=== PATIENT | male | born 1965 | race Caucasian/White ===

== ENCOUNTER 2020-01-14 10:29 | Emergency (ER) | payer MEDICARE, OTHER, SELFPAY ==
[2020-01-14] VITALS (8 sets, daily range): BP systolic 114–147; BP diastolic 75–88; PULSE 53–71; RESP 14–29; TEMP 36.9; O2SAT 90–99; BMI 35.2
[2020-01-14] MEDS: sodium chloride 0.9% 1,000 ML 999 ML IV (11:27)
--- NOTE | 2020-01-14 11:30 | ECG_ITS ---
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 Measurements Intervals [place] Rate: 52 P: 9 FL: 186 QRS: -24 QRSD: 116 T: -16 QT: 446 QTc: 418 Interpretive Statements SINUS BRADYCARDIA BORDERLINE LEFT AXIS DEVIATION [QRS AXIS < -20] MODERATE INTRAVENTRICULAR CONDUCTION DELAY [110+ ms QRS DURATION] MINIMAL VOLTAGE CRITERIA FOR LVH, CONSIDER NORMAL VARIANT NONSPECIFIC T-WAVE ABNORMALITY Compared to ECG 10/14/2017 05:17:40 T-wave abnormality now present Ventricular premature complex(es) no longer present Electronically Signed On 01-14-2020 21:22:00 CDT by Violeta Lenz M.D. [id number]
[2020-01-14 11:31] LABS: Basophils # 0.1 10^3/uL (0.0-0.1); Basophils % 0.9 %; Hematocrit 37.8 % (42.0-52.0); Hemoglobin 12.3 g/dL (11.7-16.6); Lymphocytes % 67.5 %; Mean Corpuscular HGB Conc 32.5 g/dL (30.0-36.0); Mean Corpuscular Hemoglobin 31.1 pg (28.0-34.0); Mean Corpuscular Volume 95.7 fL (80-94); Mean Platelet Volume 10.4 fL (7.4-10.4); Monocytes # 0.9 10^3/uL (0.2-0.9); Monocytes % 12.3 %; Neutrophils # 1.29 10^3/uL (1.8-7.7); Neutrophils % 17.4 %; Nucleated Red Blood Cells % 0 %; Platelet Count 133 10^3/cmm (130-400); Red Blood Count 3.95 10^6/uL (4.1-5.3); Red Cell Distribution Width 14.6 % (12.1-15.1); White Blood Count 7.4 10^3/uL (4.0-10.0)
[2020-01-14 11:42] LABS: Add Urine Microscopic? NO
--- NOTE | 2020-01-14 11:45 | ED_ITS ---
HPI - General Adult General: Chief complaint: General Medical Stated complaint: SHOCKED BY 220 AMPS Time Seen by Provider: 01/14/20 11:17 History of Present Illness: HPI narrative: Mr. olmedo is a nice 54-year-old male who comes in complaining of generalized weakness and exhaustion. He states that last week he suffered from what he thought was heat exhaustion. He was working outside in the heat for a great deal of time and became overheated. He tried to rest but then the day after he was shocked briefly by a 220 V outlet while working on an air conditioner. He states the shock was brief lasting only 3 to 4 seconds. He tried to rest after this but states that he was just tired and fatigued and could not ever get his energy back. He denies headache, chest pain, shortness of breath, fever, vomiting, abdominal pain or any other complaints. Associated symptoms: Deny chest pain, dyspnea, headache(s), nausea, rash, palpitations, syncope or vomiting Review of Systems Const: Denies: fever(s) Eyes: Denies: change in vision ENMT: Denies: throat pain Card: Denies: chest pain, palpitations, syncope, pre-syncope or dyspnea on ex ertion Resp: Denies: dyspnea, productive cough or non-productive cough GI: Denies: abdominal pain, nausea, vomiting or diarrhea : Denies: flank pain, dysuria, urinary frequency or urinary urgency Musc: Denies: neck pain, back pain or extremity pain Skin/Breast: Denies: rash or pruritus Neuro: Denies: headache(s), numbness in extremities, weakness in extremities or dizziness Atif/Lymph: Denies: easy bruising or easy bleeding All/Imm: Denies: urticaria PFSH ED PFSH: Medical History (Updated 01/14/20 @ 15:01 by Candi Echevarria) Cardiomyopathy Congestive heart failure Degenerative joint disease (DJD) of hip Depression GERD (gastroesophageal reflux disease) Gout Hyperlipidemia Hypertension Hypothyroidism Obesity Presence of combination internal cardiac defibrillator (ICD) and pacemaker Surgical History (Updated 01/14/20 @ 13:10 by Candi Echevarria) H/O hernia repair H/O laparoscopic partial gastrectomy Social History (Updated 01/14/20 @ 13:10 by Candi Echevarria) Smoking and tobacco status: never smoked Alcohol intake: never Physical Exam Const: COMMON NORMALS: no acute distress, patient oriented x3, no limitations, healthy appearing and well nourished GENERAL APPEARANCE: cooperative, well kempt and well developed HENMT: COMMON NORMALS: normocephalic, atraumatic, external ears normal, EAC's normal and Normal external nose present HEAD & SCALP: normal to inspection, normocephalic and atraumatic FACE & SINUS: normal facial exam and face symmetric NOSE: Normal external nose present and Normal nares present EXTERNAL EAR: Yes external ears normal EXTERNAL AUDITORY CANAL: EAC's normal MOUTH: Normal oral and palatal mucosa present, lip normal and tongue normal Eye: COMMON NORMALS: Equal, round and reactive pupils present and conjunctivae normal GENERAL EYE: appearance normal, both eyes and all related structures ALIGNMENT: Yes alignment normal PERIORBITAL: periorbital findings normal EYELID: eyelids normal CONJUNCTIVA: Yes conjunctivae normal SCLERA: sclerae normal PUPIL: Yes Equal, round and reactive pupils present Neck/C-Spine: COMMON NORMALS: full ROM, no lymphadenopathy, supple, no meningeal signs and no JVD GENERAL: Yes normal visual inspection and Yes trachea midline Chest: COMMONS NORMALS: normal inspection of the chest and normal palpation of entire chest wall Resp: COMMON NORMALS: normal respiratory effort, No retractions and No use of accessory muscles EFFORT & INSPECTION: Yes able to speak in complete sentences and Yes symmetric chest movement AUSCULTATION: no crackles, no rales, no rhonchi and no wheezes Cardio: COMMON NORMALS: no JVD, regular rate, regular rhythm, S1 normal heart sound present and S2 normal heart sound present RATE: regular rate RHYTHM: regular rhythm HEART SOUNDS: S1 normal heart sound present, S2 normal heart sound present, no click, no gallops, no murmurs, no rubs and abnormal split S2 GI: COMMON NORMALS: Soft to palpation and No hepatosplenomegaly present PALPATION: Yes Soft to palpation, No Tenderness to palpation present (GI), No Guarding due to palpation present (GI), No Rigid due to palpation, Yes No hepatosplenomegaly present, No Hernia present, No Palpable mass present and No Pulsatile mass present : COMMON NORMALS: Yes no CVA tenderness BLADDER/KIDNEY EXAM: Yes no CVA tenderness Back/Pelvis: COMMON NORMALS: no CVA tenderness, thoracic and lumbar spine normal to inspection, no thoracic nor lumbar tenderness and thoraco-lumbar ROM normal Extremity: COMMON NORMALS: normal to inspection, full ROM, capillary refill normal, no joint enlargement, no clubbing, cyanosis or edema and no calf tenderness Neuro: COMMON NORMALS: patient oriented x3, CN's II-XII intact bilaterally, moves all extremities, no focal motor deficits and no sensory deficits noted MENINGEAL SIGNS: Yes no meningeal signs SPEECH: speech normal Psych: COMMON NORMALS: mental status grossly normal, Normal thought process present, cooperative, normal affect, speech normal and activity/motor behavior normal APPEARANCE: Yes well kempt SPEECH: Yes normal speech THOUGHT PROCESS: Normal thought process present Skin: COMMON NORMALS: no rashes or lesions noted, turgor normal, no jaundice, no petechiae and no mottling GENERAL SKIN EXAM: no rashes or lesions noted and turgor normal Course ED course: 1226 -pacemaker interrogation reviewed with Keshawn from [email or web address]. He states the patient's pacemaker defibrillator checks out fine. It is functioning 100% as it should and there are no signs of defibrillations or any abnormalities in the recent past. Vital Signs: Vital signs: Vital Signs Temperature 98.5 F 01/14/20 10:36 Pulse Rate 62 01/14/20 14:41 Respiratory Rate 14 01/14/20 14:41 Blood Pressure 147/87 01/14/20 14:41 Pulse Oximetry 99 01/14/20 14:41 MDM - General Adult MDM Narrative: Medical decision making narrative: Mr. olmedo is a nice 54-year-old male who comes in after he got overheated last week and also got shocked by 220 V outlet. Patient's pacemaker checks out fine here there is no sign of problem. He is having no chest pain or shortness of breath just generalized weakness. He states this feels like when he had heat exhaustion on ce in the past. I see no sign of acute coronary syndrome, infectious process or acute metabolic or toxic problem. I have offered further observation and care including admission to the hospital but the patient declines. He feels better and would like to go home. He does agree to return should her symptoms change or worsen. Lab Data: Attestation: I reviewed the patient's lab results. Labs: Lab Results 01/14/20 01/14/20 01/14/20 Range/Units 11:22 11:22 11:22 WBC 7.4 (4.0-10.0) 10^3/ uL RBC 3.95 L (4.1-5.3) 10^6/u L Hgb 12.3 (11.7-16.6) g/dL Hct 37.8 L (42.0-52.0) % MCV 95.7 H (80-94) fL MCH 31.1 (28.0-34.0) pg MCHC 32.5 (30.0-36.0) g/dL RDW 14.6 (12.1-15.1) % Plt Count 133 (130-400) 10^3/c mm MPV 10.4 (7.4-10.4) fL Neut % (Auto) 17.4 % Lymph % (Auto) 67.5 % Daggett % (Auto) 12.3 % Eos % (Auto) 0.0 % Baso % (Auto) 0.9 % Neut # (Auto) 1.29 L (1.8-7.7) 10^3/u L Lymph # (Auto) 5.0 H (0.8-4.8) 10^3/u L Daggett # (Auto) 0.9 (0.2-0.9) 10^3/u L Eos # (Auto) 0.0 (0.0-0.8) 10^3/u L Baso # (Auto) 0.1 (0.0-0.1) 10^3/u L Nucleated RBC % (a uto) 0 % Nucleated RBCs # 0.0 /100WBC D-Dimer (0-0.59) ug/mIFE U Specimen Type Sample Site ABG pH (7.35-7.45) ABG pCO2 (35-45) mmHg ABG pO2 (80.0-100.0) mmH g ABG HCO3 (22-26) mmol/L ABG Base Excess (-2.0-2.0) mmol/ L Chris Test Hematocrit (42-52) % O2 Delivery Device FiO2 % Family Services Assistant ID Sodium 141 (136-145) mmol/L Potassium 3.6 (3.5-5.1) mmol/L Chloride 101 (98-107) mmol/L Carbon Dioxide 30 H (22-29) mmol/L Anion Gap 13.6 (5-19) BUN 11 (6-20) mg/dL Creatinine 1.0 (0.7-1.2) mg/dL GFR Calculation 77.6 L (90-130) mL/min Glucose 102 (65-115) mg/dL Calculated Osmolal ity 288 (285-295) mOsm/k g Calcium 8.5 (8.5-10.5) mg/dL Total Bilirubin 0.8 (0.15-1.2) mg/dL AST 37 (0-40) U/L ALT 28 (0-41) U/L Alkaline Phosphata se 79 (40-130) IU/L Creatine Kinase 31 L (39-308) U/L Troponin T Baselin e 8 (0-15) ng/L Troponin T 120 Min [place] (0-15) ng/L Delta Troponin T (0-10) ABS# NT-Pro-B Natriuret Pep (0-125) pg/mL Total Protein 7.1 (6.6-8.7) g/dL Albumin 3.5 (3.5-5.2) g/dL Globulin 3.6 (1.3-4.6) g/dL Urine Color (Yellow) Urine Appearance (CLEAR) Urine pH (5-7) Ur Specific Gravit y (1.005-1.030) Urine Protein (Negative) Urine Glucose (UA) (Normal) Urine Ketones (Negative) Urine Blood (Negative) Urine Nitrate (Negative) Urine Bilirubin (NEGATIVE) Urine Urobilinogen (Negative) mg/dL Ur Leukocyte Grace ase (Negative) Digoxin (0.6-1.2) ng/mL 01/14/20 01/14/20 01/14/20 Range/Units 11:22 11:22 11:30 WBC (4.0-10.0) 10^3/ uL RBC (4.1-5.3) 10^6/u L Hgb (11.7-16.6) g/dL Hct (42.0-52.0) % MCV (80-94) fL MCH (28.0-34.0) pg MCHC (30.0-36.0) g/dL RDW (12.1-15.1) % Plt Count (130-400) 10^3/c mm MPV (7.4-10.4) fL Neut % (Auto) % Lymph % (Auto) % Daggett % (Auto) % Eos % (Auto) % Baso % (Auto) % Neut # (Auto) (1.8-7.7) 10^3/u L Lymph # (Auto) (0.8-4.8) 10^3/u L Daggett # (Auto) (0.2-0.9) 10^3/u L Eos # (Auto) (0.0-0.8) 10^3/u L Baso # (Auto) (0.0-0.1) 10^3/u L Nucleated RBC % (a uto) % Nucleated RBCs # /100WBC D-Dimer 2.90 H (0-0.59) ug/mIFE U Specimen Type Sample Site ABG pH (7.35-7.45) ABG pCO2 (35-45) mmHg ABG pO2 (80.0-100.0) mmH g ABG HCO3 (22-26) mmol/L ABG Base Excess (-2.0-2.0) mmol/ L Chris Test Hematocrit (42-52) % O2 Delivery Device FiO2 % Family Services Assistant ID Sodium (136-145) mmol/L Potassium (3.5-5.1) mmol/L Chloride (98-107) mmol/L Carbon Dioxide (22-29) mmol/L Anion Gap (5-19) BUN (6-20) mg/dL Creatinine (0.7-1.2) mg/dL GFR Calculation (90-130) mL/min Glucose (65-115) mg/dL Calculated Osmolal ity (285-295) mOsm/k g Calcium (8.5-10.5) mg/dL Total Bilirubin (0.15-1.2) mg/dL AST (0-40) U/L ALT (0-41) U/L Alkaline Phosphata se (40-130) IU/L Creatine Kinase (39-308) U/L Troponin T Baselin e (0-15) ng/L Troponin T 120 Min [place] (0-15) ng/L Delta Troponin T (0-10) ABS# NT-Pro-B Natriuret Pep 153 H (0-125) pg/mL Total Protein (6.6-8.7) g/dL Albumin (3.5-5.2) g/dL Globulin (1.3-4.6) g/dL Urine Color Dark yellow (Yellow) Urine Appearance Clear (CLEAR) Urine pH 5 (5-7) Ur Specific Gravit y 1.020 (1.005-1.030) Urine Protein Neg (Negative) Urine Glucose (UA) Norm (Normal) Urine Ketones 1+ H (Negative) Urine Blood Neg (Negative) Urine Nitrate Negative (Negative) Urine Bilirubin 1+ H (NEGATIVE) Urine Urobilinogen 4 H (Negative) mg/dL Ur Leukocyte [place] ase Negative (Negative) Digoxin (0.6-1.2) ng/mL 01/14/20 01/14/20 01/14/20 Range/Units 12:02 13:26 13:26 WBC (4.0-10.0) 10^3/ uL RBC (4.1-5.3) 10^6/u L Hgb (11.7-16.6) g/dL Hct (42.0-52.0) % MCV (80-94) fL MCH (28.0-34.0) pg MCHC (30.0-36.0) g/dL RDW (12.1-15.1) % Plt Count (130-400) 10^3/c mm MPV (7.4-10.4) fL Neut % (Auto) % Lymph % (Auto) % Daggett % (Auto) % Eos % (Auto) % Baso % (Auto) % Neut # (Auto) (1.8-7.7) 10^3/u L Lymph # (Auto) (0.8-4.8) 10^3/u L [place]gett # (Auto) (0.2-0.9) 10^3/u L Eos # (Auto) (0.0-0.8) 10^3/u L Baso # (Auto) (0.0-0.1) 10^3/u L Nucleated RBC % (a uto) % Nucleated RBCs # /100WBC D-Dimer (0-0.59) ug/mIFE U Specimen Type Arterial Sample Site Radial, left ABG pH 7.44 (7.35-7.45) ABG pCO2 45.5 H (35-45) mmHg ABG pO2 95.6 (80.0-100.0) mmH g ABG HCO3 30.7 H (22-26) mmol/L ABG Base Excess 5.7 H (-2.0-2.0) mmol/ L Chris Test Pos Hematocrit 35.5 L (42-52) % O2 Delivery Device Nc FiO2 26.0 % Family Services Assistant ID Cak Sodium (136-145) mmol/L Potassium (3.5-5.1) mmol/L Chloride (98-107) mmol/L Carbon Dioxide (22-29) mmol/L Anion Gap (5-19) BUN (6-20) mg/dL Creatinine (0.7-1.2) mg/dL GFR Calculation (90-130) mL/min Glucose (65-115) mg/dL Calculated Osmolal ity (285-295) mOsm/k g Calcium (8.5-10.5) mg/dL Total Bilirubin (0.15-1.2) mg/dL AST (0-40) U/L ALT (0-41) U/L Alkaline Phosphata se (40-130) IU/L Creatine Kinase (39-308) U/L Troponin T Baselin e (0-15) ng/L Troponin T 120 Min [place] 9.81 (0-15) ng/L Delta Troponin T 1.81 (0-10) ABS# NT-Pro-B Natriuret Pep (0-125) pg/mL Total Protein (6.6-8.7) g/dL Albumin (3.5-5.2) g/dL Globulin (1.3-4.6) g/dL Urine Color (Yellow) Urine Appearance (CLEAR) Urine pH (5-7) Ur Specific Gravit y (1.005-1.030) Urine Protein (Negative) Urine Glucose (UA) (Normal) Urine Ketones (Negative) Urine Blood (Negative) Urine Nitrate (Negative) Urine Bilirubin (NEGATIVE) Urine Urobilinogen (Negative) mg/dL Ur Leukocyte Grace ase (Negative) Digoxin 0.5 L (0.6-1.2) ng/mL Imaging Data^: CT Chest: Radiologist's impression: [address] [address] [address] Scan Report Signed Patient: Bib Olmedo Unit #: [id number] : 1965 Age/Sex: 54 / M ADM Date: 01/14/20 Loc: ER Room/Bed: Attending Dr: Ordering Provider/Ordering MD: Candi Echevarria DO Date of Service: 01/14/20 Procedure(s): CT angio chest PE protcl [id number] Accession Number(s): [id number] Report Number: [id number] WS: [id number] CTA OF THE CHEST WITH PULMONARY EMBOLISM PROTOCOL TECHNIQUE: High-resolution contrast enhanced CTA of the chest with coronal and sagittal reformatted images with pulmonary embolism protocol. MIP images are also reviewed. CLINICAL INFORMATION: shortness of breath, positive d-dimer COMPARISON: CT abdomen pelvis October 13, 2017 DLP: 1741.[address] scans at [facility] use at least one of these dose optimization techniques: automated exposure control; mA and/or kV adjustment per patient size (includes targeted exams where dose is matched to clinical indication); or iterative reconstruction. FINDINGS: Proximal main pulmonary arteries are normal. No evidence of pulmonary embolus. Normal caliber thoracic aorta. Mild chronic emphysematous changes. Bibasilar atelectasis. Calcified granuloma right lower lobe. No mediastinal or hilar lymphadenopathy. Small esophageal hiatal hernia with postoperative changes GE junction. Normal visualized thoracic spine. Partially visualized splenomegaly. Prominent peripancreatic lymph nodes unchanged since CT abdomen pelvis October 13, 2017 Attempted notification Candi Echevarria at 01/14/2020 2:[address]/CT angio chest PE protcl [id number] IMPRESSION: 1. No evidence of pulmonary embolus. 2. Lungs are well aerated. No acute pulmonary infiltrates. Slight bibasilar atelectasis. 3. Small esophageal hiatal hernia with postoperative changes GE junction. 4. Partially visualized splenomegaly measuring at least 15.0 cm [id number] Dictated By: Venkatesh Darby MD Signed By: Venkatesh Darby MD Signed Date/Time: 01/14/20 1440 DD/ 1434 EKG Data^: EKG 1: Attestation: I personally reviewed and interpreted this EKG as follows: EKG interpretation date: 01/14/20 EKG interpretation time: 12:08 Interpretation: Sinus bradycardia at 52 beats a minute, borderline LVH, T waves inverted in 3 and aVF, otherwise no acute abnormalities. Similar to previous. Computer generated interpretation: Chest X-Ray 01/14/20 11:50 IMPRESSION: No acute abnormality. Chest CTA 01/14/20 13:31 IMPRESSION: 1. No evidence of pulmonary embolus. 2. Lungs are well aerated. No acute pulmonary infiltrates. Slight bibasilar atelectasis. 3. Small esophageal hiatal hernia with postoperative changes GE junction. 4. Partially visualized splenomegaly measuring at least 15.0 cm [id number] Discharge Plan Discharge Patient Disposition: Home Clinical Impression: Heat exhaustion Qualifiers: Encounter type: initial encounter Qualified Code(s): T67.5XXA - Heat exhaustion, unspecified, initial encounter Condition: Stable Prescriptions: No Action Multiple Vitamins Tablet 1 tab PO BID RF: 0 Euthyrox 137 mcg tablet 137 mcg PO QAM RF: 0 Coreg 25 mg tablet 25 mg PO BID RF: 0 sucralfate 1 gram tablet 1 g PO TID RF: 0 famotidine 40 mg tablet 40 mg PO BEDTIME RF: 0 simvastatin 10 mg tablet 10 mg PO QPM RF: 0 venlafaxine 150 mg capsule,extended release 24hr 150 mg PO BID RF: 0 digoxin 250 mcg (0.25 mg) tablet See Rx Instructions .ROUTE .COMPLEX RF: 0 Aspir-81 81 mg Tablet,Delayed Release (Dr/Ec) 81 mg PO DAILY RF: 0 pantoprazole 40 mg tablet,delayed release (DR/EC) 40 mg PO DAILY RF: 0 montelukast 10 mg tablet 10 mg PO BEDTIME RF: 0 furosemide 20 mg tablet 20 mg PO DAILY RF: 0 colchicine 0.6 mg tablet 0.6 mg PO DAILY PRN (Reason: unknown) RF: 0 carbidopa-levodopa 25-100 mg tablet 1 tab PO BEDTIME RF: 0 Discharge Orders: Discharge Order (Routine); Ordered 01/14/20 Ordered By: Candi Echevarria Referrals: Suzy Vera MD [Physician] - 1-3 days Discharge Diet: Advance as tolerated Discharge Activity: Resume usual activity Patient Instructions: Heat Exhaustion (ED) Activity Restrictions/Additional Instructions: Please return to the ER immediately for any of the signs or symptoms listed on your discharge instruction sheets, worsening/changing of your symptoms, you are not getting better as quickly as expected, or for ANY other cause or concerns. Discharge Date/Time: 01/14/20 15:08 Coding Level of Care Code ED Taker Off for Chg Fwd Exam Comprehensive
--- NOTE | 2020-01-14 11:50 | XRR_ITS ---
PROCEDURE INFORMATION: Exam: XR Chest, 1 View Exam date and time: 01/14/2020 12:16 PM Age: 54 years old Clinical indication: Prior surgery; Surgery date: 6+ months; Surgery type: Pacemaker; Patient HX: Shocked by 220 amps. C/O weakness and exhaustion; Additional info: Dyspnea TECHNIQUE: Imaging protocol: XR of the chest Views: 1 view. COMPARISON: CR Chest 1 [place] [id number] 10/13/2017 10:07 PM FINDINGS: Tubes, catheters and devices: There is a left subclavian AICD device. Lungs: No pneumonia or pulmonary edema. Pleural space: No pleural effusion or pneumothorax. Heart/Mediastinum: The cardiac silhouette is enlarged. The mediastinal contours are normal. Vasculature: The thoracic aorta is tortuous. Bones/joints: No acute osseous abnormality. XR/XR chest 1V portable [id number] IMPRESSION: No acute abnormality.
[2020-01-14 12:04] LABS: Alanine Aminotransferase 28 U/L (0-41); Albumin Level 3.5 g/dL (3.5-5.2); Alkaline Phosphatase 79 IU/L (40-130); Anion Gap 13.6 (5-19); Aspartate Amino Transferase 37 U/L (0-40); Blood Urea Nitrogen 11 mg/dL (6-20); Calcium 8.5 mg/dL (8.5-10.5); Carbon Dioxide 30 mmol/L (22-29); Chloride 101 mmol/L (98-107); Creatine Phosphokinase 31 U/L (39-308); Globulin 3.6 g/dL (1.3-4.6); Glomerular Filtration Rate 77.6 mL/min (90-130); Glucose 102 mg/dL (65-115); Osmolality Calculated 288 mOsm/kg (285-295); Potassium 3.6 mmol/L (3.5-5.1); Sodium 141 mmol/L (136-145); Total Bilirubin 0.8 mg/dL (0.15-1.2); Total Protein 7.1 g/dL (6.6-8.7)
[2020-01-14 12:06] LABS: Troponin(5th) Baseline 8 ng/L (0-15)
[2020-01-14 12:07] LABS: Slide Review Slide Review Perform
[2020-01-14 12:13] LABS: ABG PCO2 45.5 mmHg (35-45); ABG PH Result 7.44 (7.35-7.45); Arterial Blood Gas Hematocrit 35.5 % (42-52); Base Excess ABG 5.7 mmol/L (-2.0-2.0); Blood Gas Allen Test Pos; Blood Gas Operator Identificat CAK; Blood Gas Sample Site Radial, left; Blood Gas Sample Type Arterial; HCO3 ABG 30.7 mmol/L (22-26); Oxygen Device NC; PO2 ABG 95.6 mmHg (80.0-100.0)
[2020-01-14 12:26] LABS: Bilirubin Urine 1+ (NEGATIVE); Blood Urine Neg (Negative); Glucose Urine UA Norm (Normal); Ketones Urine 1+ (Negative); Leukocyte Esterase Urine Negative (Negative); Nitrate Urine Negative (Negative); Protein Urine Neg (Negative); Urine Appearance Clear (CLEAR); Urine Color Dark Yellow (Yellow); Urobilinogen Urine 4 mg/dL (Negative); pH Urine 5 (5-7)
[2020-01-14 12:27] LABS: NT Pro B Type Natriuretic Pept 153 pg/mL (0-125)
[2020-01-14] MEDS: ipratropium-albuterol 3 mL Neb INHALATION (13:10)
--- NOTE | 2020-01-14 13:31 | CT_ITS ---
WS: [id number] CTA OF THE CHEST WITH PULMONARY EMBOLISM PROTOCOL TECHNIQUE: High-resolution contrast enhanced CTA of the chest with coronal and sagittal reformatted i mages with pulmonary embolism protocol. MIP images are also reviewed. CLINICAL INFORMATION: shortness of breath, positive d-dimer COMPARISON: CT abdomen pelvis October 13, 2017 DLP: 1741.[address] scans at [facility] use at least one of these dose optimization techniques: automat ed exposure control; mA and/or kV adjustment per patient size (includes targeted exams where dose is matched to clinical indication); or iterative reconstruction. FINDINGS: Proximal main pulmonary arteries are normal. No evidence of pulmonary embolus. Normal caliber thoraci c aorta. Mild chronic emphysematous changes. Bibasilar atelectasis. Calcified granuloma right lower lobe. No m ediastinal or hilar lymphadenopathy. Small esophageal hiatal hernia with postoperative changes GE richard ction. Normal visualized thoracic spine. Partially visualized splenomegaly. Prominent peripancreatic lymph nodes unchanged since CT abdomen pelvis October 13, 2017 Attempted notification Candi Echevarria at 01/14/2020 2:[address]/CT angio chest PE protcl [id number] IMPRESSION: 1. No evidence of pulmonary embolus. 2. Lungs are well aerated. No acute pulmonary infiltrates. Slight bibasilar at electasis. 3. Small esophageal hiatal hernia with postoperative changes GE junction. 4. Partially visualized splenomegaly measuring at least 15.0 cm [id number]
[2020-01-14 13:58] LABS: Digoxin 0.5 ng/mL (0.6-1.2)
[2020-01-14 13:59] LABS: Troponin 5 2HR 9.81 ng/L (0-15); Troponin 5 2HR Delta 1.81 ABS# (0-10)
[2020-01-14] MEDS: iohexol 350 mg/mL 100 mL Btl IV ×2 (14:20)
== END 2020-01-14 15:08 | disposition home or self-care (01) ==
PROVIDERS: Physician Assistant; Emergency Provider Emergency Medicine
DX: T67.5XXA Heat exhaustion, unspecified, initial encounter (principal); X30.XXXA Exposure to excessive natural heat, initial encounter; Z79.82 Long term (current) use of aspirin; I11.0 Hypertensive heart disease with heart failure; I50.9 Heart failure, unspecified; E78.5 Hyperlipidemia, unspecified; Z95.0 Presence of cardiac pacemaker
CPT/HCPCS: 12345; 36415; 36600; 71045; 71275; 80053; 80162; 81003; 82550; 82803; 83880; 84484; 85025; 85378; 87040; 93005; 94640; 96360; 99283; 99284; J7030; Q9967

== ENCOUNTER 2024-07-17 11:43 | Outpatient (CLI) | payer MEDICARE, OTHER, SELFPAY ==
--- NOTE | 2024-07-17 12:00 | USCV_ITS ---
Bib Olmedo Age: 58 Gender: M : 1965 Exam Date: 07/17/2024 12:07 Ordering Phys: Ana Selby Technologist: CT Exam Location: [facility] [place]_ Indication: BP: 127 / 81 HR: 47 Rhythm: Sinus Technical Quality: Adequate MEASUREMENTS (Male / Female) Normal Values 2D ECHO LVOT Diameter 2.2 cm LV Ejection Fraction MOD 4C 58.2 % LV Ejection Fraction MOD 2C 47.9 % LV Ejection Fraction 2C AL 49.0 % LA Diameter 4.6 cm RA Systolic Volume 4C AL 48.1 ml RA Systolic Volume 4C MOD 46.1 ml LA Sys Volume AL 90.1 cm cubed LA Sys Volume Index AL 37.0 cm cubed/m squared Aorta at Sinotubular Diameter 2.4 cm IVC Diameter 1.9 cm M-MODE LA Ao Ratio MM 1.9 AV Cusp Separation MM 1.8 cm DOPPLER AV Peak Velocity 164.0 cm/s LVOT Peak Velocity 76.0 cm/s AV Area Cont Eq vti 1.7 cm squared AV Area Cont Eq pk 1.8 cm squared MV Peak Velocity 87.0 cm/s MV Area PHT 2.8 cm squared Mitral E to A Ratio 0.8 TR Peak Velocity 254.5 cm/s TR Peak Gradient 25.9 mmHg TR Mean Velocity 188.0 cm/s TR Mean Gradient 15.9 mmHg TR Velocity Time Integral 69.0 cm TV Peak E Velocity 59.0 cm/s PV Peak Velocity 114.5 cm/s FINDINGS Left Ventricle LV systolic function is mildly reduced with EF of 45-50%. Mild global hypokinesis. Grade 1 diastolic dysfunction. Right Ventricle Normal in size and function. Pacemaker lead is seen Right Atrium Normal in size. Left Atrium Dilated Mitral Valve Structurally normal mitral valve. Mild to moderate mitral regurgitation. Aortic Valve Structurally normal aortic valve. No significant stenosis or regurgitation Tricuspid Valve Mild tricuspid regurgitation. Pulmonary artery systolic pressure is normal. Pulmonic Valve Not well-visualized. Pericardium Normal Aorta Normal in size IVC Appears to be normal CONCLUSIONS LV systolic function is mildly reduced with EF of 45-50%. Grade 1 diastolic dysfunction. Left atrial dilation. Mild to moderate mitral regurgitation Mild tricuspid regurgitation Andrea Morris MD (Electronically Signed) Final Date: 22 July 2024 13:57 S
== END 2024-07-17 11:44 | disposition home or self-care (01) ==
LOC: RAD 11:48
PROVIDERS: PCP Registered Nurse; Visit Provider Registered Nurse
DX: I50.42 Chronic combined systolic (congestive) and diastolic (congestive) heart failure (principal); I49.5 Sick sinus syndrome; I42.0 Dilated cardiomyopathy; R93.1 Abnormal findings on diagnostic imaging of heart and coronary circulation; I34.0 Nonrheumatic mitral (valve) insufficiency; I07.1 Rheumatic tricuspid insufficiency
CPT/HCPCS: 93306

== ENCOUNTER 2025-05-27 18:07 | Emergency (ER) | payer MEDICARE, OTHER, SELFPAY ==
[2025-05-27 18:21] VITALS: BP 157/92; PULSE 57; TEMP 36.6; O2SAT 99
--- NOTE | 2025-05-27 19:12 | W.ED.MALEGU ---
HPI - Male Genitourinary General: Chief complaint: Urogenital-Male Stated complaint: Lower Rt Hernia Blown Out Time Seen by Provider: 05/27/25 19:11 History of Present Illness: 59-year-old male presents emergency room complaining of groin pain. He says that he picked up something heavy felt a bulging in his right groin region. It initially happened 3 days ago he is able to get it to reduce he seemed to do pretty well for the next couple of days and today when out and he cannot get it reduced. He previously had bilateral inguinal hernia surgery several decades ago. No dysuria urgency or frequency no fevers or chills no vomiting Associated symptoms: Deny dysuria Related Data Home Medications ?Medication ?Instructions ?Recorded ?Confirmed aspirin 81 mg tablet,delayed 81 mg PO DAILY 01/14/20 01/14/20 release (Aspir-) carbidopa 25 mg-levodopa 100 mg 1 tab PO BEDTIME 01/14/20 01/14/20 tablet carvedilol 25 mg tablet (Coreg) 25 mg PO BID 01/14/20 01/14/20 colchicine 0.6 mg tablet 0.6 mg PO DAILY PRN unknown 01/14/20 01/14/20 digoxin 250 mcg (0.25 mg) tablet See Rx Instructions .Route .COMPLEX 01/14/20 01/14/20 famotidine 40 mg tablet 40 mg PO BEDTIME 01/14/20 01/14/20 furosemide 20 mg tablet 20 mg PO DAILY 01/14/20 01/14/20 levothyroxine 137 mcg tablet 137 mcg PO QAM 01/14/20 01/14/20 (Euthyrox) montelukast 10 mg tablet 10 mg PO BEDTIME 01/14/20 01/14/20 multivitamin (Multiple Vitamins 1 tab PO BID 01/14/20 01/14/20 tablet) pantoprazole 40 mg tablet,delayed 40 mg PO DAILY 01/14/20 01/14/20 release simvastatin 10 mg tablet 10 mg PO QPM 01/14/20 01/14/20 sucralfate 1 gram tablet 1 g PO TID 01/14/20 01/14/20 venlafaxine 150 mg 150 mg PO BID 01/14/20 01/14/20 capsule,extended release 24 hr Allergies Allergy/AdvReac Type Severity Reaction Status Date / Time No Known Allergies Allergy Verified 05/27/25 18:26 Review of Systems Const: Denies: fever(s) or chills Card: Denies: chest pain Resp: Denies: dyspnea GI: Denies: abdominal pain : Denies: dysuria, urinary frequency or urinary urgency Musc: Denies: neck pain or back pain Skin/Breast: Denies: rash PFSH ED PFSH: Medical History Hypothyroidism GERD (gastroesophageal reflux disease) Degenerative joint disease (DJD) of hip Depression Gout Congestive heart failure Obesity Hyperlipidemia Hypertension Presence of combination internal cardiac defibrillator (ICD) and pacemaker Cardiomyopathy Surgical History H/O hernia repair H/O laparoscopic partial gastrectomy Social History Smoking and tobacco/nicotine status: never used tobacco/nicotine Alcohol intake: never Substance/Drug Use: never Physical Exam Const: COMMON NORMALS: no acute distress GENERAL APPEARANCE: cooperative and comfortable ORIENTATION/CONSCIOUSNESS: Yes awake, Yes oriented to person, Yes oriented to place and Yes oriented to time HENMT: COMMON NORMALS: normocephalic, atraumatic and hearing grossly normal bilaterally HEAD & SCALP: normocephalic and atraumatic Resp: COMMON NORMALS: normal respiratory effort, No retractions, No use of accessory muscles and clear to auscultation bilaterally AUSCULTATION: clear to auscultation bilaterally Cardio: COMMON NORMALS: regular rate, regular rhythm and No murmurs present (Cardio) RATE: regular rate RHYTHM: regular rhythm GI: COMMON NORMALS: Soft to palpation and No hepatosplenomegaly present AUSCULTATION: Yes normoactive bowel sounds PALPATION: Yes Soft to palpation, No Tenderness to palpation present (GI), No Guarding due to palpation present (GI) and Yes No hepatosplenomegaly present Extremity: COMMON NORMALS: normal to inspection, capillary refill normal, no clubbing, cyanosis or edema, no calf tenderness and no pedal edema Neuro: SENSORIUM/ORIENTATION: Yes oriented to person, Yes oriented to place and Yes oriented to time Skin: COMMON NORMALS: no rashes or lesions noted GENERAL SKIN EXAM: no rashes or lesions noted Course Vital Signs: Vital signs: Vital Signs Temperature 97.8 F 05/27/25 18:21 Pulse Rate 75 05/27/25 20:46 Respiratory Rate 16 05/27/25 20:15 Blood Pressure 132/75 05/27/25 20:46 Pulse Oximetry 93 05/27/25 20:46 Oxygen Delivery Me thod Room Air 05/27/25 20:00 MDM - Male Medical Decision Making Medical decision making Social determinants: None I reviewed the patient's medical record. I reviewed the patient's current home meds. Alternate historians: None Differential diagnosis: Right inguinal hernia strangulation versus incarceration bowel obstruction Lab Review: None Imaging: CT abdomen pelvis done after reduction of hernia shows good reduction there is some inflammation to Of the terminal ileum. Reviewed with the radiologist given the history of recent reduction he felt this is compatible with what they are seen. Additionally he confirmed there is no sign of obstruction or perforation Assessment of risk Level of risk: Moderate Hospitalization considerations: Consideration for hospitalization pending results of CT Reexamination: Improved no recurrence of inguinal hernia Assessment and plan: Hernia removed reduced by direct manipulation. Patient did have improvement although he was somewhat uncomfortable for a time after pain medications given did help it. I discussed with radiologist to confirm there is no sign of perforation. Patient discharged home given strict instructions regarding heavy lifting and exertion. Will refer him to surgery clinic. Return if has recurrence of herniation Lab Data Radiology Impressions Abdomen/Pelvis CT 05/27/25 19:21 IMPRESSION: 1. Right inguinal small hernia containing omentum with some edema of the omentum without definite bowel involved, negative for bowel dilation to indicate obstruction, please correlate for reduction. 2. Terminal ileum wall thickening with surrounding edema, series 4, image 75, please correlate for an enteritis such as inflammatory bowel disease. 3. Prominent fluid in the small bowel without dilation may reflect an enteritis. 4. Diverticulosis without diverticulitis. 5. Left kidney cyst, negative for follow-up advised. 6. Coronary artery atherosclerotic calcifications. 7. Pacemaker. 8. Cholecystectomy. 9. Gastric surgical sutures. ADDENDUM: 05/27/252016 Additional history has become available, reduction of a right-sided inguinal hernia that occurred prior to the CT scan. In light of this, the terminal ileum wall findings are likely related to reduction of a previously present hernia. Findings reviewed with Dr HAMMOND on the telephone. All radiology interpretation(s) finalized by discharge Discharge Plan Discharge Patient Disposition: Home Clinical Impression: Right inguinal hernia Condition: Stable Prescriptions: No Action Multiple Vitamins Tablet 1 tab PO BID Euthyrox 137 mcg tablet 137 mcg PO QAM Coreg 25 mg tablet 25 mg PO BID sucralfate 1 gram tablet 1 g PO TID Rx Instructions: pts states pt takes 1 tab po bid famotidine 40 mg tablet 40 mg PO BEDTIME simvastatin 10 mg tablet 10 mg PO QPM venlafaxine 150 mg capsule,extended release 24hr 150 mg PO BID Rx Instructions: pts state the pt only takes once a day digoxin 250 mcg (0.25 mg) tablet See Rx Instructions .ROUTE .COMPLEX Rx Instructions: one-half tab po daily Aspir-81 81 mg Tablet,Delayed Release (Dr/Ec) 81 mg PO DAILY pantoprazole 40 mg tablet,delayed release (DR/EC) 40 mg PO DAILY montelukast 10 mg tablet 10 mg PO BEDTIME furosemide 20 mg tablet 20 mg PO DAILY Rx Instructions: pts states the pt hasnt taken for a couple days colchicine 0.6 mg tablet 0.6 mg PO DAILY PRN (Reason: unknown) carbidopa-levodopa 25-100 mg tablet 1 tab PO BEDTIME Discharge Orders: Discharge ED (Routine); Ordered 05/27/25 Ordered By: José Miguel Hammond Referrals: Ana Selby [Primary Care Provider, Family Practice] Patient Instructions: Opioid Safety, Pain Management, Patient Portal & Tania Instructions Activity Restrictions/Additional Instructions: Thank you for choosing [facility] for your healthcare needs today. It is very important that you follow up as instructed or that you return to the Emergency Department should you have concerns or if your condition changes or worsens in any way. Emergency department visits are focused on emergent conditions, in some cases you may require further evaluation on an outpatient basis. You were seen in the emergency room with a right inguinal hernia. We were able to reduce it. CT that was done after the reduction showed findings that would be expected after presenting with an incarcerated hernia. There was no sign of perforation of the bowel. At this point you do not need to have this emergently repaired but will likely need a surgical repair of this hernia in the future. You should avoid any heavy lifting. Do not lift anything greater than 10 pounds (a gallon of milk is approximately 10 pounds.) classification case manager will make arrangements for you to follow-up with general surgery. If the hernia protrudes and will not go down return to the emergency room. (Please note that included in your discharge packet is information concerning opioid safety and pain management. This information is given to all patients were discharged from the ER regardless of their discharge diagnosis or the medicines they usually take or are prescribed.) Print Language: Spanish Coding Level of Care Code ED School Examiner for Machelle Petersen
[2025-05-27 19:15] VITALS: BP 150/88; PULSE 68; O2SAT 97
--- NOTE | 2025-05-27 19:21 | CTR_ITS ---
PROCEDURE INFORMATION: Exam: CT Abdomen And Pelvis Without Contrast Exam date and time: 05/27/2025 7:49 PM Age: 59 years old Clinical indication: Other: Inguinal hernia; Prior surgery; Surgery date: 6+ months; Surgery type: Hernia pacer; Additional info: Incarcerated inguinal hernia TECHNIQUE: Imaging protocol: Computed tomography of the abdomen and pelvis without contrast. Radiation optimization: All CT scans at this facility use at least one of these dose optimization techniques: automated exposure control; mA and/or kV adjustment per patient size (includes targeted exams where dose is matched to clinical indication); or iterative reconstruction. COMPARISON: CT angio chest PE protcl [id number] 01/14/2020 2:04 PM RADIATION DOSE METRICS: Total DLP (mGy-cm): 880.33 FINDINGS: Tubes, catheters and devices: Pacemaker. Coronary arteries: Coronary artery atherosclerotic calcifications. Liver: Normal. No mass. Gallbladder and biliary ducts: Cholecystectomy. Pancreas: Normal. No ductal dilation. Spleen: Normal. No splenomegaly. Adrenal glands: Normal. No mass. Kidneys and ureters: Left kidney cyst, negative for follow-up advised. Stomach and bowel: Terminal ileum wall thickening with surrounding edema, series 4, image 75, please correlate for an enteritis such as inflammatory bowel disease. Prominent fluid in the small bowel without dilation may reflect an enteritis. Diverticulosis without diverticulitis. Gastric surgical sutures. Appendix: No evidence of appendicitis. Intraperitoneal space: Right inguinal small hernia containing omentum with some edema of the omentum without definite bowel involved, negative for bowel dilation to indicate obstruction, please correlate for reduction. Vasculature: Unremarkable. No abdominal aortic aneurysm. Lymph nodes: Unremarkable. No enlarged lymph nodes. Urinary bladder: Unremarkable as visualized. Reproductive: Unremarkable as visualized. Bones/joints: Unremarkable. No acute fracture. Soft tissues: Unremarkable. CT/CT abdomen pelvis wo con [id number] IMPRESSION: 1. Right inguinal small hernia containing omentum with some edema of the omentum without definite bowel involved, negative for bowel dilation to indicate obstruction, please correlate for reduction. 2. Terminal ileum wall thickening with surrounding edema, series 4, image 75, please correlate for an enteritis such as inflammatory bowel disease. 3. Prominent fluid in the small bowel without dilation may reflect an enteritis. 4. Diverticulosis without diverticulitis. 5. Left kidney cyst, negative for follow-up advised. 6. Coronary artery atherosclerotic calcifications. 7. Pacemaker. 8. Cholecystectomy. 9. Gastric surgical sutures.
[2025-05-27 20:00] VITALS: BP 138/79; PULSE 71; O2SAT 93
[2025-05-27 20:15] VITALS: RESP 16; O2SAT 93
[2025-05-27] MEDS: ondansetron 2 mg/ML SDV 2 mL 4 MG IVP (20:15)
[2025-05-27] MEDS: morphine 4 mg/mL SDV 1 mL IVP (20:15)
[2025-05-27 20:46] VITALS: BP 132/75; PULSE 75; O2SAT 93
--- OUTSIDE RECORDS SUMMARY | 2025-05-27 21:37 | XMS_ITS | Encounter Summary ---
Author Organization [facility] Address [address] [place] [address] Care Team Providers Care Family Health Nurse Practitioner Name Role Phone Curtis Mariee MD Primary Care Provider [phone] Reason for Visit * Reason Onset Date Comments Hernia 05/27/2025 Encounter Details Date Type Department Care Team (Late st Contact Info) Description 05/27/2025 Telephone [facility] [address] [phone] Ana Selby, [facility] [address] [phone] Hernia Social History Tobacco Use Types Packs/Day Years Used Date Smoking Tobacco: Every Day Cigarettes Smokeless Tobacco: Never Alcohol Use Standard Drinks/Week Comments No 0 (1 standard drink = 0.6 oz pur e alcohol) Sex and Gender Information Value Date Recorded Sex Assigned at Not on file Legal Sex Male 1:20 PM CLEARANCE DIVER Gender Identity Not on file Sexual Orientation Not on file documented as of this encounter Miscellaneous Notes * Telephone Encounter - Gloria Timmons RN - 05/27/2025 7:56 AM CLEARANCE DIVER 05/27/2025 7:56 AM Returned call and spoke with caregiver. Discussed that is recommended to be evaluated at the ER. states that she wants this discussed with Ana, she doesn't want her emails being read and her not knowing what is going on. Nurse advised that message will be sent to provider per request. Gloria RN RANCE DIVER documented in this encounter Plan of Treatment Upcoming Encounters Date Type Department Care Team (Late st Contact Info) Description 06/10/2025 8:00 AM CLEARANCE DIVER Procedure visit [facility] [address] [place] [phone] Shadi Rodriguez MD [address] [place] [phone] 07/22/2025 10:20 AM CLEARANCE DIVER Office Visit [facility] [place] [facility] [address] [phone] Ana Selby, [facility] [address] [phone] 08/27/2025 1:20 PM CDT Office Visit [facility] [address] [facility] [address] [place] [phone] Anaya Perrin, [facility] [address] [place] [phone] 12/16/2025 3:00 PM CDT Office Visit [facility] Gen Spec Surg [place] [address] [phone] Abner Bruce, [facility] [address] [phone] 12/16/2025 3:45 PM CDT Video Visit [facility] [address] [phone] Jesu Chung, DOUBLE CORNER CUTTER [address] [place] [address] documented as of this encounter Goals Goal Patient Goal Type Associated Problems Recent Progress Patient-Stated? Author Heart Failure Goal Care Plan Heart Failure Problem No Gloria Timmons, commissary assistant Failure Goal Care Plan Heart Failure Problem No Wayne, Manish Heart Failure Goal Care Plan Heart Failure Problem No Wayne, Manish Heart Failure Goal Care Plan Heart Failure Problem No Wayne, Manish Heart Failure Goal Care Plan Heart Failure Problem No Wayne, Manish Heart Failure Goal Care Plan Heart Failure Problem No Wayne, Mnaish Heart Failure Goal Care Plan Heart Failure Problem No Wayne, Manish Heart Failure Goal Care Plan Heart Failure Problem No Wayne, Manish Heart Failure Goal Care Plan Heart Failure Problem No Wayne, Manish Heart Failure Goal Care Plan Heart Failure Problem No Wayne, Manish Heart Failure Goal Care Plan Heart Failure Problem No Wayne, Manish Heart Failure Goal Care Plan Heart Failure Problem No Gloria Timmons RN Heart Failure Goal Care Plan Heart Failure Problem No Gloria Timmons, TOM documented as of this encounter Visit Diagnoses Not on filedocumented in this encounter Additional Health Concerns Active Problems Noted Date Diagnosed Date Heart Failure Problem 05/15/2024 Heart Failure Problem 07/09/2024 Heart Failure Problem 07/09/2024 Heart Failure Problem 07/09/2024 Heart Failure Problem 07/09/2024 Heart Failure Problem 07/09/2024 Heart Failure Problem 07/09/2024 Heart Failure Problem 07/09/2024 Heart Failure Problem 07/09/2024 Heart Failure Problem 07/09/2024 Heart Failure Problem 07/09/2024 Heart Failure Problem 07/11/2024 Heart Failure Problem 07/11/2024 documented as of this encounter Care Teams Family Health Nurse Practitioner Relationship Specialty Start Date End Date Curtis Mariee MD [address] [facility] [address] [place] [id number] PCP - General Family Practice 07/08/23 documented as of this encounter
--- OUTSIDE RECORDS SUMMARY | 2025-05-27 21:37 | XMS_ITS | Encounter Summary ---
Author Organization [facility] Address [address] [place] [address] Care Team Providers Care Dining Room Attendant Cafeteria Name Role Phone MarcosAngellaRosita Guy TILLMAN Primary Care Provider [phone] Reason for Referral * Radiology Services (Routine) - Closed Specialty Diagnoses / Procedures Referred By Jada t Referred To Contact Radiology Diagnoses Gastroesophageal reflux disease without esophagitis History of sleeve gastrectomy Procedures XR UPR GI XR UPR GI AIR CONTRAST Rowena Harman FNP [facility] Imaging Services [address] [place] [phone] Phone: tel: fax: Referral ID Status Reason Start Date Expiration Date V isits Requested Visits Authorized [id number] Closed [facility] TO SCHEDULE (SGF) 08/14/2019 09/13/2020 1 1 LER PICKUP Encounter Details Date Type Department Care Team (Latest Contact Info) Description 08/21/2019 Ancillary Orders [facility] Gen [facility] [place] [address] [facility] [address] [place] [address] Rowena Harman FNP NO ADDRESS ON FILE Gastroesophageal reflux disease without esophagitis; History of sleeve gastrectomy Social History Tobacco Use Types Packs/Day Years Used Date Smoking Tobacco: Every Day Cigarettes Smokeless Tobacco: Never Alcohol Use Standard Drinks/Week Comments No 0 (1 standard drink = 0.6 oz pur e alcohol) Sex and Gender Information Value Date Recorded Sex Assigned at Not on file Legal Sex Male 3:06 PM CDT Gender Identity Not on file Sexual Orientation Not on file documented as of this encounter Plan of Treatment Not on file documented as of this encounter Results * XR UPR GI (08/21/2019 9:43 AM SAMPLER PICKUP) Anatomical Region Laterality Modality Abdomen Computed Radiogr aphy 08/21/2019 9:45 AM SAMPLER PICKUP Narrative 08/21/2019 12:00 PM SAMPLER PICKUP Exam: XR UPR GI Date/Time of Exam: 08/21/2019 9:43 AM Reason For Exam: See Diagnosis. Diagnosis: Gastroesophageal reflux disease without esophagitis; History of sleeve gastrectomy. Preliminary findings dictated by JANAE Hall RPA. Direct supervision and final interpretation by Dr. Bourgeois. Welding Machine Operator Helper Gas views of the abdomen show stool throughout the nondistended colon. Surgical clips over the left upper abdomen. Esophagus is somewhat distended without stricture, mass, or ulceration. Small sliding-type hiatal hernia. The sleeve gastrectomy is minimally restrictive without stricture or obstruction identified. No delayed gastric emptying. Duodenal bulb and sweep show no gross abnormality. Two diverticula from the second and third portions of the duodenum. IMPRESSION 1. Small sliding-type hiatal hernia. 2. Minimally restrictive sleeve gastrectomy. 3. Duodenal diverticula. Procedure Note Zachery Bourgeois MD - 08/21/2019 Exam: XR UPR GI Date/Time of Exam: 08/21/2019 9:43 AM Reason For Exam: See Diagnosis. Diagnosis: Gastroesophageal reflux disease without esophagitis; History of sleeve gastrectomy. Preliminary findings dictated by JANAE Hall RPA. Direct supervision and final interpretation by Dr. Bourgeois. Welding Machine Operator Helper Gas views of the abdomen show stool throughout the nondistended colon. Surgical clips over the left upper abdomen. Esophagus is somewhat distended without stricture, mass, or ulceration. Small sliding-type hiatal hernia. The sleeve gastrectomy is minimally restrictive without stricture or obstruction identified. No delayed gastric emptying. Duodenal bulb and sweep show no gross abnormality. Two diverticula from the second and third portions of the duodenum. IMPRESSION 1. Small sliding-type hiatal hernia. 2. Minimally restrictive sleeve gastrectomy. 3. Duodenal diverticula. Rowena L Harman MANAGER DISASTER RECOVERY DIAGNOSTIC IMAGING ORDERABLES Final Result documented in this encounter Visit Diagnoses Diagnosis Gastroesophageal reflux disease without esophagitis Esophageal reflux History of sleeve gastrectomy Gastroesophageal reflux disease without esophagitis Esophageal reflux History of sleeve gastrectomy documented in this encounter Care Teams Dining Room Attendant Cafeteria Relationship Specialty Start Date End Date Rosita Rodríguez DO [address] [place] [id number] PCP - General Family Practice 07/26/17 documented as of this encounter
--- OUTSIDE RECORDS SUMMARY | 2025-05-27 21:37 | XMS_ITS | Encounter Summary ---
Author Organization [facility] Address [address] [place] [address] Care Team Providers Care Gas Plant Worker Name Role Phone Curtis Mariee MD Primary Care Provider +1 [phone] Encounter Details Date Type Department Care Team (Late st Contact Info) Description 04/17/2025 Results Follow-Up [facility] Family Medicine [place] [address] [address] Ana Selby, [facility] [address] [address] CBC WITH DIFFERENTIAL, HEMOGLOBIN A1C, LIPID PANEL, Additional followed-up results: 3 Social History Tobacco Use Types Packs/Day Years Used Date Smoking Tobacco: Every Day Cigarettes Smokeless Tobacco: Never Alcohol Use Standard Drinks/Week Comments No 0 (1 standard drink = 0.6 oz pur e alcohol) Sex and Gender Information Value Date Recorded Sex Assigned at Not on file Legal Sex Male 1:20 PM FRONT OF HOUSE MANAGER Gender Identity Not on file Sexual Orientation Not on file documented as of this encounter Plan of Treatment Upcoming Encounters Date Type Department Care Team (Late st Contact Info) Description 06/10/2025 8:00 AM FRONT OF HOUSE MANAGER Procedure visit [facility] [address] [facility] [address] [place] [address] Shadi Rodriguez MD [address] [place] [phone] 07/22/2025 10:20 AM FRONT OF HOUSE MANAGER Office Visit [facility] Family Medicine [place] [address] [place] [address] Ana Selby, [facility] [address] [address] 08/27/2025 1:20 PM CDT Office Visit [facility] [address] [place] [address] Anaya Perrin, [facility] [address] [place] [address] 12/16/2025 3:00 PM CDT Office Visit [facility] Gen Spec Surg [place] [address] [place] [address] Abner Bruce, [facility] [address] [place] [address] 12/16/2025 3:45 PM CDT Video Visit [facility] Sleep Center [address] [address] Jesu Chung NP [address] [address] documented as of this encounter Goals Goal Patient Goal Type Associated Problems Recent Progress Patient-Stated? Author Heart Failure Goal Care Plan Heart Failure Problem No Gloria Timmons, scrap burner Failure Goal Care Plan Heart Failure Problem No Manish Black Heart Failure Goal Care Plan Heart Failure Problem No Manish Black Heart Failure Goal Care Plan Heart Failure [...] Plan Heart Failure Problem No Gloria Timmons, scrap burner Failure Goal Care Plan Heart Failure Problem No Gloria Timmons RN documented as of this encounter Visit Diagnoses [...] documented as of this encounter Care Teams Gas Plant Worker Relationship Specialty Start Date End Date Curtis Mariee MD [address] [phone] PCP - General Family Practice 07/08/23 documented as of this encounter
--- OUTSIDE RECORDS SUMMARY | 2025-05-27 21:37 | XMS_ITS | Encounter Summary ---
Author Organization [facility] Address [address] [place] [address] Care Team Providers Care Heel Seat Pounder Name Role Phone Curtis Mariee MD Primary Care Provider [phone] [phone] Reason for Visit * Reason Onset Date Comments rescheduled appointment 05/23/2025 Patient Communication Encounter Details Date Type Department Care Team (Late st Contact Info) Description 05/23/2025 Telephone [facility] Family Medicine [place] [address] [address] Ana Selby, [facility] [address] [address] rescheduled appointment; Patient Communication Social History Tobacco Use Types Packs/Day Years Used Date Smoking Tobacco: Every Day Cigarettes Smokeless Tobacco: Never Alcohol Use Standard Drinks/Week Comments No 0 (1 standard drink = 0.6 oz pur e alcohol) Sex and Gender Information Value Date Recorded Sex Assigned at Not on file Legal Sex Male 1:20 PM CONVEYOR LINE BAKERY WORKER Gender Identity Not on file Sexual Orientation Not on file documented as of this encounter Miscellaneous Notes * Telephone Encounter - Siobhan Doty - 05/23/2025 3:38 PM CST Copied from [facility] #[id number]. Topic: CPA Information Request >> May 23, 2025 3:37 PM Siobhan Castillo wrote: Caller is returning phone call from clinic. Caller Name: Bib Olmedo Patient/Caregiver Callback Number: Telephone Information: Clinic Left Note In Chart - informed and is okay with new scheduling date. Is there a note from the clinic requesting the caller be transferred when they call back? No Are the credentials of the caregiver who called the patient tour driver? No Call Notes: Communicated information that is documented in the note. Caller does not want a call back from clinic. EYOR LINE BAKERY WORKER * Telephone Encounter - May Anderson - 05/23/2025 3:32 PM CST 05/23/2025 3:32 PM No answer. Left voice mail/message to return our call. If patient/caregiver calls back, contact center please advise patient that his 07/17/25 appointment has been RESCHEDULED to 07/22/2025 @ 10:20 am If this appointment does not work for the patient please rescheduled to a day and time that is convenient for patient. Will send My MXP4 Mailed letter to address on file. May EYOR LINE BAKERY WORKER documented in this encounter Plan of Treatment Upcoming Encounters Date Type Department Care Team (Late st Contact Info) Description 06/10/2025 8:00 AM CONVEYOR LINE BAKERY WORKER Procedure visit [facility] [address] [place] [address] Shadi Rodriguez MD [address] [place] [phone] 07/22/2025 10:20 AM CONVEYOR LINE BAKERY WORKER Office Visit [facility] [address] [address] Ana Selby FNP [address] [phone] 08/27/2025 1:20 PM CDT Office Visit [facility] [address] [place] [address] Anaya Perrin, [facility] [address] [place] [address] 12/16/2025 3:00 PM CDT Office Visit [facility] Gen Spec Surg [place] [address] [place] [address] Abner Bruce, [facility] [address] [place] [address] 12/16/2025 3:45 PM CDT Video Visit [facility] Sleep Center [address] [place] [address] Jesu Chung, FIELD ASSOCIATE [address] [facility] [address] [place] [address] documented as of this encounter [...] Goal Care Plan Heart Failure Problem No Timmons, Gloria Layne, kidney trimmer Failure Goal Care Plan Heart Failure Problem [...] documented as of this encounter Care Teams Heel Seat Pounder Relationship Specialty Start Date End Date Curtis Mariee MD [address] [phone] PCP - General Family Practice 07/08/23 documented as of this encounter
--- OUTSIDE RECORDS SUMMARY | 2025-05-27 21:37 | XMS_ITS | Clinical Summary ---
Author Organization [facility] Address [address] [place] [address] Phone Care Team Providers Care Educational Consultant Name Role Phone Rosita Rodríguez Primary Care Provider Allergies No known active allergies Medications aspirin (ECOTRIN EC) 81 mg Tablet, Delayed Release (E.C.) Take 81 mg by mouth daily. Active MULTIVIT-MINERALS/ FA/LYCOPENE (ONE DAILY FOR MEN ORAL) Take 1 Tablet by mouth daily. Active Syringe with Needle, Disp, (BD LUER-LUIS SYRINGE) 3 mL 22 x 1 1/2 SyringeIndications :Other specified intestinal malabsorption,S/P laparoscopic sleeve gastrectomy As directed. 3 Syringe 3 8 Active febuxostat (ULORIC) 40 mg TabletIndications: Chronic gout with tophus, unspecified cause, unspecified site Take 1 Tablet (40 mg) by mouth daily. 30 Tablet 4 8 Active diclofenac sodium (VOLTAREN) 1 % gel Apply 1 Gram to affected area 4 times daily. Active carvediloL (COREG) 25 mg tablet Take 1 tablet by mouth twice daily with food 180 Tablet 3 0 Active furosemide (LASIX) 20 mg tablet Take 1 tablet by mouth once daily 45 Tablet 3 0 Active pantoprazole (PROTONIX) 40 mg Tablet, Delayed Release (E.C.) TAKE 1 TABLET BY MOUTH ONCE DAILY 90 Tablet 3 0 Active bi-level machineIndications :JESS (obstructive sleep apnea) BiLevel 13 CWPwith heated humidifier, Cpap/Bipap supplies: Full face mask and headgear A7030/A7035 1/6mo, mask only A7030 1/3mo, cushions A7031 1/mo, heated tubing A4604, 1/3mo, water chamber A7046 1/6mo, filter disposable filters A7038 2/mo, reusable filters A7039 1/6mo. Chin Strap A7036 1/6 mo Length of need; 99 mo DX : G47.33 1 Each 0 Active indomethacin (INDOCIN) 25 mg capsuleIndications :Chronic gout with tophus, unspecified cause, unspecified site Take 1 Capsule (25 mg) by mouth 3 times daily. 90 Capsule 3 0 Active famotidine (PEPCID) 40 mg tabletIndications: S/P laparoscopic sleeve gastrectomy,Gastro esophageal reflux disease without esophagitis TAKE 1 TABLET BY MOUTH ONCE DAILY AT NIGHT 90 Tablet 3 0 Active digoxin (LANOXIN) 250 mcg (0.25 mg) tabletIndications: Dilated cardiomyopathy (CMS/HCC) Take 1/2 (one-half) tablet by mouth once daily 45 Tablet 4 0 Active LEVOTHYROXINE 137 mcg tablet TAKE 1 TABLET BY MOUTH ONCE DAILY IN THE MORNING 90 Tablet 1 Active venlafaxine (EFFEXOR XR) 150 mg Extended Release 24 hour capsule Take 1 capsule by mouth twice daily 180 Capsule 1 Active fluticasone propionate (FLONASE) 50 mcg/spray Cameron, Suspension nasal inhalerIndications :Subacute pansinusitis Administer 2 Sprays in each nostril daily. 16 Gram 1 Active meclizine (ANTIVERT) 25 mg tabletIndications: Dizziness Take 1 Tablet (25 mg) by mouth 3 times daily as needed for Dizziness. 60 Tablet 1 Active simvastatin (ZOCOR) 80 mg tabletIndications: Mixed hyperlipidemia Take 1 Tablet (80 mg) by mouth daily. 90 Tablet 3 1 Active montelukast (SINGULAIR) 10 mg tabletIndications: Allergy, sequela TAKE 1 TABLET BY MOUTH ONCE DAILY AT BEDTIME 30 Tablet 11 1 Active carbidopa-levodopa (SINEMET) 25-100 mg tabletIndications: RLS (restless legs syndrome) TAKE 1 TABLET BY MOUTH ONCE DAILY AT BEDTIME 30 Tablet 11 1 Active pramipexole (MIRAPEX) 0.125 mg TabletIndications: RLS (restless legs syndrome) TAKE 1 TABLET BY MOUTH ONCE DAILY AT BEDTIME 30 Tablet 11 1 Active colchicine (COLCRYS) 0.6 mg tabletIndications: Chronic gout with tophus, unspecified cause, unspecified site TAKE 2 TABLETS BY MOUTH A ONE TIME DOSE. MAY TAKE 1 TABLET MORE 1 HOUR LATER IF NEEDED. DO NOT REPEAT DOSES FOR 3 DAYS. 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 9) with comorbidity 07/28/2015 08/26/2020 Morbid obesity with BMI of 40.0-44.9, adult 04/23/2015 07/28/2015 ERRONEOUS ENCOUNTER--DISREGARD 02/17/2015 09/29/2015 Social History Tobacco Use Types Packs/Day Years Used Date Smoking Tobacco: Every Day Cigarettes Smokeless Tobacco: Never Tobacco Cessation:Ready to Q uit: No; Counseling Given: Yes Alcohol Use Standard Drinks/Week Comments No 0 (1 standard drink = 0.6 oz pur e alcohol) Sex and Gender Information Value Date Recorded Sex Assigned at Not on file Legal Sex Male 3:06 PM CDT Gender Identity Not on file Sexual Orientation Not on file Last Filed Vital Signs Vital Sign Reading Time Taken Comments Blood Pressure 140/76 09/04/2020 10:43 AM CDT Pulse 60 09/04/2020 10:43 AM CDT Temperature 36.6 C (97.8 F) 08/26/2020 10:25 AM ROLLER COASTER ENGINEER Respiratory Rate 20 03/26/2020 2:29 PM CDT Oxygen Saturation 98% 08/26/2020 10: 25 AM ROLLER COASTER ENGINEER Inhaled Oxygen Concentration - - Weight 127.8 kg (281 lb 12.8 oz) 2020 10:43 AM CDT Height 182.9 cm (6') 09/04/2020 10:43 AM CDT Body Mass Index 38.22 09/04/2020 10:43 AM CDT Plan of Treatment Health Maintenance Due Date Last Done Comments FIT/ DNA Q 3 YEARS (AUTO ORDER) 1982 FIT/FOBT Q 1 YEAR (AUTO ORDER) 1982 FLEX SIG/CT COLONOGRAPHY Q 5 YEARS (AUTO ORDER) 1982 DTAP/TDAP/TD VACCINES (1 - Tdap) 12/21/1983 Traditional Medicare (ACO) Annual Wellness Visit 12/21/1983 FIT-DNA Q 3 years 2009 FIT/FOBT Q 1 year 2009 Flex Sig/CT Colonography Q 5 years 2009 ZOSTER VACCINE (1 of 2) 2014 Pre-Diabetes and Diabetes Screening 06/18/2018 06/18/2015 INFLUENZA VACCINE (#1) 2025 09/07/2018 COLORECTAL CANCER SCREENING (AUTO ORDER) 10/16/2027 10/15/2017, 09/15/2017, 09/15/2017, Additional history exists COLORECTAL SCREENING 10/16/2027 10/15/2017, 09/15/2017, 09/15/2017, Additional history exists Colorectal Cancer Screening (AUTO ORDER) 10/16/2027 Colorectal Cancer Screening 10/16/2027 RSV VACCINE (60+ or ) (1 - 1-dose 75+ series) 12/21/2039 HEPATITIS B VACCINES Aged Out No long er eligible based on patient's age to complete this topic Medical Devices Implanted Type Area Desktop Publishing Specialist Device Identifier Shelf Expiration Date Model / Serial / Lot Defibrillator -05/04/2018 Implanted: by Shadi Rodriguez MD (Quantity not on file) Defibrillator [employer] 04/19/2019 / [id number] / Mesh Ventralight St 4x6in [id number] - [id number] Implanted:Qty : 1 on 01/23/2016 by Cody Do MD at [facility] Mesh N/A: Umbilical [employer] 12/15/2017 [id number] / / [id number] Procedures Procedure Name Priority Date/Time Associated Diagnosis Comments ENDOSCOPY, COLON, DIAGNOSTIC Routine 10/15/2017 HEMOGLOBIN A1C Routine 06/18/2015 7:53 AM ROLLER COASTER ENGINEER from Last 3 Months or Most Recently Relevant to Health Maintenance Results * ENDOSCOPY, COLON, DIAGNOSTIC (10/15/2017) us Abstract Spg Provider GI PROCEDURE ORDERABLES Fi nal Result * (ABNORMAL) HEMOGLOBIN A1C (06/18/2015 7:53 AM ROLLER COASTER ENGINEER) HEMOGLOBIN A1C 6.5(H) 4.0 - 6.0 % 06/19/2015 10:29 AM ROLLER COASTER ENGINEER [facility] EST. AVG GLUCOSE, A1C 140 mg/dL 06/19/2015 10:29 AM ROLLER COASTER ENGINEER [facility] Blood Venipuncture - L ab Collect / Unknown 06/18/2015 7:53 AM ROLLER COASTER ENGINEER 06/18/2015 2:10 PM ROLLER COASTER ENGINEER Narrative [facility] - 06/19/2015 10:29 AM ROLLER COASTER ENGINEER Test performed on Babybe instrumentation using HPLC methodology us Cody Do MD CHEMISTRY ORDERABLES Fi nal Result [facility]# [id number] [address] [place] [address] from Last 3 Months or Most Recently Relevant to Health Maintenance Insurance MEDICARE PART A AND B GENERIC PAYOR MEDICARE PART A AND B GENERIC PAYOR Advance Directives For more information, please contact: [phone] Documents on File Type Date Recorded Patient Winch Driver Expl anation Advance Directive Living Will 05/19/2015 9:50 AM * Full Code (Latest Code Status on File) Date Activated Date Inactivated Comments 05/04/2018 2:55 PM 05/04/2018 6:54 PM * Full Code Date Activated Date Inactivated Comments 02/24/2018 10:26 AM 02/24/2018 4:19 PM * Full Code Date Activated Date Inactivated Comments 01/23/2016 10:30 PM 01/27/2016 3:01 PM * Full Code Date Activated Date Inactivated Comments 01/23/2016 12:39 PM 01/23/2016 10:30 PM * Full Code Date Activated Date Inactivated Comments 01/23/2016 10:05 AM 01/23/2016 12:39 PM Care Teams Educational Consultant Relationship Specialty Start Date End Date Rosita Rodríguez DO [address] [place] [address] PCP - General Family Practice 07/26/17
--- OUTSIDE RECORDS SUMMARY | 2025-05-27 21:37 | XMS_ITS | Encounter Summary ---
Author Organization [facility] Address [address] [place] [address] Care Team Providers Care Assembler Rubber Footwear Name Role Phone Curtis Mariee MD Primary Care Provider [phone] Reason for Visit * Reason Comments Medication Refill Encounter Details Date Type Department Care Team (Late Contact Info) Description 12/25/2020 [facility]ill [facility] [address] [place] [address] oSl Back, TOOL AND GAUGE INSPECTOR [address] [facility] [address] [place] [address] Social History Tobacco Use Types Packs/Day Years Used Date Smoking Tobacco: Every Day Cigarettes Smokeless Tobacco: Never Alcohol Use Standard Drinks/Week Comments No 0 (1 standard drink = 0.6 oz pur e alcohol) Sex and Gender Information Value Date Recorded Sex Assigned at Not on file Legal Sex Male 1:20 PM CSO Gender Identity Not on file Sexual Orientation Not on file documented as of this encounter Plan of Treatment Upcoming Encounters Date Type Department Care Team (Late Contact Info) Description 06/10/2025 8:00 AM CSO Procedure visit [facility] [address] [facility] [address] [place] [address] Shadi Rodriguez MD [address] [place] [address] 07/22/2025 10:20 AM CSO Office Visit [facility] Family Medicine [place] [address] [address] Ana Selby, [facility] [address] [address] 08/27/2025 1:20 PM CDT Office Visit [facility] Heart [facility] [address] [place] [address] Anaya Perrin, [facility] [address] [place] [address] 12/16/2025 3:00 PM CDT Office Visit [facility] Gen Spec Surg [place] [address] [place] [address] Abner Bruce, [facility] [address] [place] [address] 12/16/2025 3:45 PM CDT Video Visit [facility] Sleep Center [address] [address] Jesu Chung, ROPING TENDER [address] [address] documented as of this encounter Visit Diagnoses Not on filedocumented in this encounter Care Teams Assembler Rubber Footwear Relationship Specialty Start Date End Date Curtis Mariee MD [address] [address] PCP - General Family Practice 07/08/23 documented as of this encounter
--- OUTSIDE RECORDS SUMMARY | 2025-05-27 21:38 | XMS_ITS | Encounter Summary ---
Author Organization [facility] Address [address] [place] [address] Care Team Providers Care School Guard Name Role Phone Curtis Mariee MD Primary Care Provider [phone] Encounter Details Date Type Department Care Team (Late st Contact Info) Description 07/13/2024 Results Follow-Up [facility] Family Medicine [place] [address] [address] Ana Selby, [facility] [address] [address] HEMOGLOBIN A1C Social History Tobacco Use Types Packs/Day Years Used Date Smoking Tobacco: Every Day Cigarettes Smokeless Tobacco: Never Alcohol Use Standard Drinks/Week Comments No 0 (1 standard drink = 0.6 oz pur e alcohol) Sex and Gender Information Value Date Recorded Sex Assigned at Not on file Legal Sex Male 1:20 PM ANESTHESIOLOGY TEACHER Gender Identity Not on file Sexual Orientation Not on file documented as of this encounter Plan of Treatment Upcoming Encounters Date Type Department Care Team (Late st Contact Info) Description 06/10/2025 8:00 AM ANESTHESIOLOGY TEACHER Procedure visit [facility] [address] [facility] [address] [place] [address] Shadi Rodriguez MD [address] [facility] [address] [place] [address] 07/22/2025 10:20 AM ANESTHESIOLOGY TEACHER Office Visit [facility] Family Medicine [place] [address] [place] [address] Ana Selby, [facility] [address] [address] 08/27/2025 1:20 PM CDT Office Visit [facility] [address] [place] [address] Anaya Perrin, [facility] [address] [place] [address] 12/16/2025 3:00 PM CDT Office Visit [facility] Gen Spec Surg [place] [address] [place] [address] Abner Bruce, [facility] [address] [address] 12/16/2025 3:45 PM CDT Video Visit [facility] Sleep [facility] [address] [address] Jesu Chung, LAMBSKIN TRIMMER [address] [address] documented as of this encounter Goals Goal Patient Goal Type Associated Problems Recent Progress Patient-Stated? Author Heart Failure Goal Care Plan Heart Failure Problem No Gloria Timmons, nurse manager Failure Goal Care Plan Heart Failure Problem [...] Plan Heart Failure Problem No Gloria Timmons nurse manager Failure Goal Care Plan Heart Failure Problem [...] documented as of this encounter Care Teams School Guard Relationship Specialty Start Date End Date Curtis Mariee MD [address] [phone] PCP - General Family Practice 07/08/23 documented as of this encounter
--- OUTSIDE RECORDS SUMMARY | 2025-05-27 21:38 | XMS_ITS | Clinical Summary ---
Author Organization [facility] Address [address] [place] [address] Phone Care Team Providers Care Residential Counselor Name Role Phone Curtis Mariee MD Primary Care Provider [phone] Allergies Active Allergy Reactions Criticality Noted Date Comments Lisinopril Cough Low 11/09/2023 Medications fluticasone propionate (FLONASE) 50 mcg/spray [place], Suspension nasal inhalerIndications :Subacute pansinusitis Administer 2 Sprays in each nostril daily. 16 Gram 0 07/15/19 21 Active cyanocobalamin 1,000 mcg TabletIndications: Anemia due to vitamin B12 deficiency, unspecified B12 deficiency type Take 1 Tablet (1,000 mcg) by mouth daily. 90 Tablet 2 08/19/19 22 Active meclizine (ANTIVERT) 25 mg tabletIndications: Dizziness Take 1 Tablet (25 mg) by mouth 3 times daily as needed for Dizziness. 60 Tablet 1 09/23/19 22 Active aspirin (ECOTRIN EC) 81 mg Tablet, Delayed Release (E.C.) Take 81 mg by mouth daily. 09/25/19 15 Active multivit-minerals/ FA/lycopene (ONE DAILY FOR MEN ORAL) Take 1 Tablet by mouth daily. 01/23/20 16 Active colchicine (COLCRYS) 0.6 mg tabletIndications: Chronic gout with tophus, unspecified cause, unspecified site TAKE 2 TABLETS BY MOUTH A ONE TIME DOSE. MAY TAKE 1 MORE TABLET 1 HOUR LATER IF NEEDED. DO NOT REPEAT DOSES FOR 3 DAYS. 12 Tablet 10/08/19 23 Active indomethacin (INDOCIN) 25 mg capsuleIndications :Chronic gout with tophus, unspecified cause, unspecified site,Idiopathic chronic gout of right foot without tophus TAKE 1 CAPSULE BY MOUTH THREE TIMES DAILY 90 Capsule 2 05/23/20 23 Active pseudoephedrine (SUDAFED) 30 mg tabletIndications: Nasal congestion Take 1 Tablet (30 mg) by mouth every 6 hours as needed for Congestion. 24 Tablet 03/07/20 24 Active levothyroxine 137 mcg tabletIndications: Hypothyroidism, unspecified type TAKE 1 TABLET BY MOUTH ONCE DAILY IN THE MORNING 100 Tablet 3 08/13/19 25 Active montelukast (SINGULAIR) 10 mg tabletIndications: Allergy, sequela TAKE 1 TABLET BY MOUTH ONCE DAILY AT BEDTIME 100 Tablet 3 08/15/19 25 Active spironolactone (ALDACTONE) 50 mg tablet Take 1 Tablet (50 mg) by mouth daily. 100 Tablet 2 08/15/19 25 Active furosemide (LASIX) 20 mg tablet Take 1 tablet by mouth once daily 90 Tablet 3 08/15/19 25 Active bi-level machineIndications :Obstructive sleep apnea Bi-level (E0470) at 13/9 cm/H2O with heated humidifier (E0562), MASK OF CHOICE, headgear(A7035) , cushions (A7031) 1/1 month, (A7032) (A7033) 2 pair/1 month. Heated tubing A4604 1/3mo,water chamber A7046 1/6mo,filter disp A7038 2/mo,Reusable filter A7039 1/6mo, Chin strap A7036 a/6mo CHERYL 99mo DX: JESS (G47.33) 1 Each 09/15/19 25 Active digoxin (LANOXIN) 250 mcg (0.25 mg) tabletIndications: Dilated cardiomyopathy (CMS/HCC) Take 1 Tablet (250 mcg) by mouth daily. 100 Tablet 2 11/06/19 25 Active famotidine (PEPCID) 40 mg tabletIndications: Gastroesophageal reflux disease without esophagitis,S/P laparoscopic sleeve gastrectomy Take 1 Tablet (40 mg) by mouth daily at bedtime. 100 Tablet 1 11/06/19 25 Active carbidopa-levodopa (SINEMET CR) 50-200 mg Controlled Release tabletIndications: RLS (restless legs syndrome) Take 1 Tablet by mouth daily at bedtime. 100 Tablet 2 01/10/20 25 Active pramipexole (MIRAPEX) 0.5 mg tabletIndications: RLS (restless legs syndrome) Take 1 Tablet (0.5 mg) by mouth daily at bedtime. 100 Tablet 1 01/10/20 25 Active venlafaxine (EFFEXOR XR) 150 mg Extended Release 24 hour capsule Take 1 Capsule (150 mg) by mouth 2 times daily. 200 Capsule 2 01/15/20 25 Active doxycycline hyclate (VIBRAMYCIN) 100 mg tablet 01/10/20 25 Active tirzepatide, weight loss, (Zepbound) 2.5 mg/0.5 mL Pen InjectorIndication s:JESS treated with BiPAP Inject 0.5 mL (2.5 mg) by subcutaneous injection every 7 days. 2 mL 3 01/16/20 25 Active carvediloL (COREG) 25 mg tablet Take 1 Tablet (25 mg) by mouth 2 times daily with meals. 180 Tablet 1 04/02/20 25 Active buPROPion HCL (Wellbutrin XL) 150 mg Extended Release 24 hour tabletIndications: Mild episode of recurrent major depressive disorder Take 1 Tablet (150 mg) by mouth daily in the morning. 100 Tablet 2 04/02/20 25 Active pantoprazole (PROTONIX) 40 mg Tablet, Delayed Release (E.C.)Indications: LUQ abdominal pain,Gastroesophag eal reflux disease without esophagitis Take 1 Tablet (40 mg) by mouth daily. 100 Tablet 2 04/02/20 25 Active busPIRone (BUSPAR) 10 mg tabletIndications: Anxiety state Take 1 Tablet (10 mg) by mouth 3 times daily. 300 Tablet 2 04/02/20 25 Active simvastatin (ZOCOR) 80 mg tabletIndications: Mixed hyperlipidemia Take 1 tablet by mouth once daily 100 Tablet 3 04/22/20 25 Active losartan (COZAAR) 25 mg tablet Take 1 Tablet (25 mg) by mouth daily. 30 Tablet 5 05/27/20 25 Active losartan (COZAAR) 25 mg tablet Take 1 Tablet (25 mg) by mouth daily. 30 Tablet 11 04/16/20 24 025 Discontin ued(Reord er) Active Problems Problem Noted Date Diagnosed Date Prediabetes 01/15/2025 BMI 34.0-34.9,adult 01/15/2025 DALJIT (generalized anxiety disorder) 10/08/2024 RLS (restless legs syndrome) 10/08/2024 Hypothyroidism 01/16/2024 ICD (implantable cardioverter-defibrillator) michael d failure 09/23/2022 Overview (09/23/2022): Added automatically from request for surgery [id number] GERD (gastroesophageal reflux disease) Essential hypertension 09/04/2020 Peripheral vascular disease, unspecified 020 Cigarette dependence 10/15/2018 S/P right knee arthroscopy sx 02-24-[address] Tiara joseph 03/15/2018 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, single chamber Dilated cardiomyopathy 09/25/2014 Chronic combined systolic an d diastolic CHF (congestive heart failure) 09/24/2014 Resolved Problems Problem Noted Date Diagnosed Date Resolved Date Abdominal pain 03/08/2022 10/08/2024 ICD (implantable cardioverte r-defibrillator) lead failure 03/05/2022 04/26/2022 Overview (03/05/2022): Added automatically from request for surgery [id number] Severe obesity (BMI 35.0-39. 9) with comorbidity 07/28/2015 08/26/2020 Morbid obesity with BMI of 40.0-44.9, adult 04/23/2015 07/28/2015 ERRONEOUS ENCOUNTER--DISREGARD 02/17/2015 09/29/2015 Encounters Date Type Department Care Team Description 05/27/2025 Orders Only [place] [id number] [facility] [address] [place] [address] Nini Hernandez RN 05/27/[address] [address] Ana Selby FNP Hernia 05/23/[address] [address] Ana Selby FNP rescheduled appointment; Patient Communication 04/21/[address] [address] Ana Selby FNP Mixed hyperlipidemia 04/17/2025 Results Follow-Up [address] [address] Ana Selby FNP CBC WITH DIFFERENTIAL, HEMOGLOBIN A1C, LIPID PANEL, Additional followed-up results: 3 04/16/2025 10:00 AM CDT Office Visit [address] [address] Ana Selby FNP Chronic combined systolic and diastolic CHF (congestive heart failure) (CMS/HCC) (Primary Dx); Mixed hyperlipidemia; Acquired hypothyroidism; Prediabetes; ICD (implantable cardioverter-defibril lator) in place; Peripheral vascular disease, unspecified; Essential hypertension; Chronic pain of both shoulders 04/01/[address] [address] Ana Selby FNP Mild episode of recurrent major depressive disorder; LUQ abdominal pain; Gastroesophageal reflux disease without esophagitis; Anxiety state 04/01/2025 Refill [facility] [address] [place] [address] Eduar Charles MD 04/01/2025 Refill [facility] [address] [phone] Ana Selby FNP Mild episode of recurrent major depressive disorder; Anxiety state 03/26/2025 Telephone [facility] [address] [phone] Ana Selby FNP Appointment Correction 03/19/2025 External Device Data STL ABSTRACTION Provider, Abstract 03/11/2025 8:00 AM CDT Procedure visit [facility] [address] [place] [phone] Shadi Rodriguez MD Dilated cardiomyopathy (CMS/HCC) (Primary Dx); Congestive heart failure, unspecified HF chronicity, unspecified heart failure type (CMS/HCC) 03/04/2025 Telephone [place] [address] [place] [phone] Shadi Rodriguez MD Video Visit/ States they didn't get a call from Last 3 Months Family History Medical History Relation Name Comments Colon Cancer Neg Hx Social History Tobacco Use Types Packs/Day Years Used Date Smoking Tobacco: Every Day Cigarettes Smokeless Tobacco: Never Tobacco Cessation:Ready to Q uit: No; Counseling Given: Yes Alcohol Use Standard Drinks/Week Comments No 0 (1 standard drink = 0.6 oz pur e alcohol) Sex and Gender Information Value Date Recorded Sex Assigned at Not on file Legal Sex 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 Gender Identity Not on file Sexual Orientation Not on file Last Filed Vital Signs Vital Sign Reading Time Taken Comments Blood Pressure 114/85 04/16/2025 9:45 AM CDT Pulse 53 04/16/2025 9:45 AM CDT Temperature 36.4 C (97.5 F) 04/16/2025 9:45 AM CDT Respiratory Rate 16 04/16/2025 9:45 AM CDT Oxygen Saturation 97% 04/16/2025 9:45 AM CDT Inhaled Oxygen Concentration - - Weight 101.2 kg (223 lb) 04/16/2025 9:45 AM CDT Height 182.9 cm (6') 04/16/2025 9:45 AM CDT Body Mass Index 30.24 04/16/2025 9:45 AM CDT Plan of Treatment Upcoming Encounters Date Type Department Care Team (Late st Contact Info) Description 06/10/2025 8:00 AM BANKING SUPERVISOR Procedure visit [facility] [address] [place] [phone] Shadi Rodriguez MD [address] [place] [address] 07/22/2025 10:20 AM BANKING SUPERVISOR Office Visit [facility] [place] [address] [phone] Ana Selby, [facility] [address] [address] 08/27/2025 1:20 PM CDT Office Visit [facility] [address] [place] [phone] Anaya Perrin, [facility] [address] [place] [phone] 12/16/2025 3:00 PM CDT Office Visit [facility] [place] [address] [address] Abner Bruce, [facility] [address] [address] 12/16/2025 3:45 PM CDT Video Visit [facility] [address] [address] Jesu Chung, GRAIN ELEVATOR CLERK [address] [place] [phone] Health Maintenance Due Date Last Done Comments FIT/ DNA Q 3 YEARS (AUTO ORDER) 1982 FIT/FOBT Q 1 YEAR (AUTO ORDER) 1982 FLEX SIG/CT COLONOGRAPHY Q 5 YEARS (AUTO ORDER) 1982 DTAP/TDAP/TD VACCINES (1 - Tdap) 12/21/1983 FIT-DNA Q 3 years 2009 FIT/FOBT Q 1 year 2009 Flex Sig/CT Colonography Q 5 years 2009 RSV VACCINE (60+ or ) (1 - Risk 50-74 years 1-dose series) 2014 ZOSTER VACCINE (1 of 2) 2014 INFLUENZA VACCINE (#1) 2025 , 02/28/2023, 09/22/2021, Additional history exists Traditional Medicare (O) Annual Wellness Visit 01/30/2025 01/30/2024, 12/13/2022 COLORECTAL CANCER SCREENING (AUTO ORDER) 10/16/2027 10/15/2017, 10/15/2017, 09/15/2017, Additional history exists COLORECTAL SCREENING 10/16/2027 10/15/2017, 10/15/2017, 09/15/2017, Additional history exists Colorectal Cancer Screening (AUTO ORDER) 10/16/2027 Colorectal Cancer Screening 10/16/2027 Pre-Diabetes and Diabetes Screening 04/16/2028 04/16/2025, 01/15/2025, 07/09/2024, Additional history exists Abdominal Aortic Aneurysm (AAA) Screening Completed 04/14/2021 HEPATITIS B VACCINES Aged Out No long er eligible based on patient's age to complete this topic Goals Goal Patient Goal Type Associated Problems Recent Progress Patient-Stated? Author Heart Failure Goal Care Plan Heart Failure Problem No Gloria Timmons, subsea engineer Failure Goal Care Plan Heart Failure Problem [...] Heart Failure Problem No Gloria Timmons RN Medical Devices Implanted Type Area Pool Attendant Device Identifier Shelf Expiration Date Model / Serial / Lot Defibrillator -05/04/2018 Implanted: by Shadi Rodriguez MD (Quantity not on file) Defibrillator [employer] 04/19/2019 / [id number] / Lead Hp Durata 65cm 7122q-65 - [id number] Implanted:Qty : 1 on 04/01/2022 at [facility] Lead Left: Chest ABREU [employer] 09/17/2024 7122Q-65 / [id number] Lead Hp Durata 65cm 7122q-65 - [id number] Implanted:Qty : 1 on 10/22/2022 at [facility] Lead Left: Chest ABREU [employer] 11/17/2024 7122Q-65 / [id number] Mesh Ventralight St 4x6in [id number] - [id number] Implanted:Qty : 1 on 01/23/2016 by Cody Do MD Mesh N/A: Umbilical CR [employer] 12/15/2017 [id number] / / [id number] Sealant Fibrin 4ml Kit Vst04 - [id number] Implanted:Qty : 1 on 08/04/2021 by Cody Do MD at [facility] Sealant N/A: Abdomen [employer] [id number] 01/14/2023 VST04 / / [id number] Procedures Procedure Name Priority Date/Time Associated Diagnosis Comments HEMOGLOBIN A1C Routine 04/16/2025 10:07 AM CDT Prediabetes CBC WITH DIFFERENTIAL Routine 04/16/2025 10:07 AM CDT Essential hypertension COMPREHENSIVE METABOLIC PANEL Routine 04/16/2025 10:07 AM CDT Prediabetes LIPID PANEL Routine 04/16/2025 10:07 AM CDT Mixed hyperlipidemia TSH Routine 04/16/2025 10:07 AM CDT Acquired hypothyroidism T4 FREE Routine 04/16/2025 10:07 AM CDT Acquired hypothyroidism LA ARTHROCENTESIS ASPIR&/INJ MAJOR JT/BURSA W/O US Routine 04/16/2025 10:00 AM CDT Chronic pain of both shoulders LA ARTHROCENTESIS ASPIR&/INJ MAJOR JT/BURSA W/O US Routine 04/16/2025 10:00 AM CDT Chronic pain of both shoulders LA REM INTERROG PM/LDLS PM/IDS <90 D TECH REVIEW Routine 03/11/2025 2:00 AM CDT Dilated cardiomyopathy (CMS/HCC) Congestive heart failure, unspecified HF chronicity, unspecified heart failure type (CMS/HCC) LA INTERROGATION EVAL REMOTE </90 D 1/2/WOOL HANDLER LD DFB Routine 03/11/2025 2:00 AM CDT Dilated cardiomyopathy (CMS/HCC) Congestive heart failure, unspecified HF chronicity, unspecified heart failure type (CMS/HCC) US ABDOMEN COMPLETE Routine 04/14/2021 9 :51 AM CDT Gastroesophageal reflux disease without esophagitis Other specified intestinal malabsorption S/P laparoscopic sleeve gastrectomy Epigastric abdominal pain ENDOSCOPY, COLON, DIAGNOSTIC 10/15/2017 12:00 AM CDT from Last 3 Months or Most Recently Relevant to Health Maintenance Results * (ABNORMAL) CBC WITH DIFFERENTIAL (04/16/2025 10:07 AM CDT) WBC 5.4 3.8 - 10.8 Thousand/u L [facility] RBC 4.85 4.20 - 5.80 Million/uL [facility] HEMOGLOBIN 16.1 13.2 - 17.1 g/dL [facility] HEMATOCRIT 48.1 38.5 - 50.0 % [facility] MCV 99.2 80.0 - 100.0 fL [facility] MCH 33.2(H) 27.0 - 33.0 pg [facility] MCHC 33.5 32.0 - 36.0 g/dL [facility] Comment: For adults, a slight decrease in the calculated MCHC value (in the range of 30 to 32 g/dL) is most likely not clinically significant; however, it should be interpreted with caution in correlation with other red cell parameters and the patient's clinical condition. RDW 12.9 11.0 - 15.0 % [facility] PLATELETS 253 140 - 400 Thousand/u L [facility] MPV 11.7 7.5 - 12.5 fL [facility] NEUTROPHIL ABSOLUTE 3,121 1,500 - 7,800 cells/uL [facility] LYMPHOCYTE ABSOLUTE 1,447 850 - 3,900 cells/uL [facility] MONOCYTE ABSOLUTE 610 200 - 950 cells/uL [facility] EOSINOPHIL ABSOLUTE 173 15 - 500 cells/uL [facility] BASOPHILS ABSOLUTE 49 0 - 200 cells/uL [facility] NEUTROPHIL 57.8 % [facility] LYMPHOCYTES 26.8 % [facility] MONOCYTE 11.3 % [facility] EOSINOPHILS 3.2 % [facility] BASOPHILS 0.9 % [facility] Comment: Test Performed at: [facility] [id number] [address] Gilberto Vazquez MD Blood 04/16/2025 10:0 7 AM CDT 04/17/2025 5:22 AM CDT Ana Selby CLOTH FINISHING RANGE OPERATOR HEMATOLOGY ORDERABLES Fi nal Result Performing Organization Address City/State/[facility] Co de Phone Number [facility] [phone] [facility] [address] * TSH (04/16/2025 10:07 AM CDT) Pathologist [facility] TSH 1.47 0.40 - 4.50 mIU/L [facility] Comment: Test Performed at: [facility] [address] NikkiZora Vazquez MD Blood 04/16/2025 10:0 7 AM CDT 04/17/2025 5:22 AM CDT Ana Selby [facility] CHEMISTRY ORDERABLES Fin al Result Performing Organization Address [facility] de Phone Number [place] [phone] [facility] [address] * T4 FREE (04/16/2025 10:07 AM CDT) Pathologist [facility] T4 FREE 1.3 0.8 - 1.8 ng/dL [facility] Comment: Test Performed at: [email or web address] [address] NikkiZora Vazquez MD Blood 04/16/2025 10:0 7 AM CDT 04/17/2025 5:22 AM CDT Ana Selby [facility] CHEMISTRY ORDERABLES Fin al Result Performing Organization Address City/[facility] Co de Phone Number [facility] [phone] [facility] [address] * HEMOGLOBIN A1C (04/16/2025 10:07 AM CDT) Pathologist [facility] HEMOGLOBIN A1C 5.0 <5.7 % [facility] Comment: For the purpose of screening for the presence of diabetes: <5.7% Consistent with the absence of diabetes 5.7-6.4% Consistent with increased risk for diabetes (prediabetes) > or =6.5% Consistent with diabetes This assay result is consistent with a decreased risk of diabetes. Currently, no consensus exists regarding use of hemoglobin A1c for diagnosis of diabetes in children. According to [place] Diabetes Association (ADA) guidelines, hemoglobin A1c <7.0% represents optimal control in non- diabetic patients. Different metrics may apply to specific patient populations. Standards of Medical Care in Diabetes(ADA). ESTIMATED AVERAGE GLUCOSE (MG/DL) 97 mg/dL [facility] ESTIMATED AVERAGE GLUCOSE (MMOL/L) 5.4 mmol/L [facility] Comment: Test Performed at: [facility] [id number] [facility] [place] [address] Gilberto Vazquez MD Blood 04/16/2025 10:0 7 AM CDT 04/17/2025 5:22 AM CDT Ana Selby [facility] CHEMISTRY ORDERABLES Fin al Result [facility] [phone] [facility] [address] [facility] [place] [address] * (ABNORMAL) LIPID PANEL (04/16/2025 10:07 AM CDT) CHOLESTEROL 110 <200 mg/dL [facility] HDL 50 > OR = 40 mg/dL [facility] TRIGLYCERIDE 152(H) <150 mg/dL [facility] LDL CALCULATED 37 mg/dL (calc) [facility] Comment: Reference range: <100 Desirable range <100 mg/dL for primary prevention; <70 mg/dL for patients with CHD or diabetic patients with > or = 2 CHD risk factors. LDL-C is now calculated using the Pennie calculation, which is a validated novel method providing better accuracy than the Friedewald equation in the estimation of LDL-C. Polo SS et al. CANELO. 2013;310(19): 4059-0490 (http://education.Pantheon/faq/ECG639) CHOL/HDL RATIO 2.2 <5.0 (calc) [facility] NON-HDL CHOLESTEROL 60 <130 mg/dL (calc) [facility] Comment: For patients with diabetes plus 1 major ASCVD risk factor, treating to a non-HDL-C goal of <100 mg/dL (LDL-C of <70 mg/dL) is considered a therapeutic option. Test Performed at: [facility] [id number] [facility] [place] [address] Gilberto Vazquez MD Blood 04/16/2025 10:0 7 AM CDT 04/17/2025 5:22 AM CDT Ana Selby [facility] CHEMISTRY ORDERABLES Fin al Result [facility] [phone] [facility] [address] [facility] [place] [address] * (ABNORMAL) COMPREHENSIVE METABOLIC PANEL (04/16/2025 10:07 AM CDT) GLUCOSE 117(H) 65 - 99 mg/dL [facility] Comment: Fasting reference interval For someone without known diabetes, a glucose value between 100 and 125 mg/dL is consistent with prediabetes and should be confirmed with a follow-up test. BUN 11 7 - 25 mg/dL [facility] CREATININE 0.82 0.70 - 1.35 mg/dL [facility] GFR 101 > OR = 60 mL/min/1. 73m2 [facility] BUN/CREAT RATIO SEE NOTE: 6 - 22 (calc) [facility] Comment: Not Reported: BUN and Creatinine are within reference range. SODIUM 140 135 - 146 mmol/L [facility] POTASSIUM 3.9 3.5 - 5.3 mmol/L [facility] CHLORIDE 103 98 - 110 mmol/L [facility] CO2 29 20 - 32 mmol/L [facility] CALCIUM 9.3 8.6 - 10.3 mg/dL [facility] TOTAL PROTEIN 7.0 6.1 - 8.1 g/dL [facility] ALBUMIN 4.3 3.6 - 5.1 g/dL [facility] GLOBULIN 2.7 1.9 - 3.7 g/dL (calc) [facility] ALBUMIN/GLOBULIN RATIO 1.6 1.0 - 2.5 (calc) [facility] BILIRUBIN TOTAL 0.7 0.2 - 1.2 mg/dL [facility] ALKALINE PHOSPHATASE 56 35 - 144 U/L [facility] AST 48(H) 10 - 35 U/L [facility] ALT 58(H) 9 - 46 U/L [facility] Comment: Test Performed at: [facility] [address] [place] [address] Gilberto Vazquez MD Blood 04/16/2025 10:0 7 AM CDT 04/17/2025 5:22 AM CDT us Ana SANABRIA CHEMISTRY ORDERABLES Fin al Result Performing Organization Address City/State/[facility] Co de Phone Number [facility] [phone] [facility] [address] [place] [address] * LA ARTHROCENTESIS ASPIR&/INJ MAJOR JT/BURSA W/O US (04/16/2025 10:00 AM CDT) Narrative [facility] - 04/16/2025 10:00 AM CDT Ana Selby FNP 04/16/2025 10:32 AM Large Joint Inject/Drain Date/Time: 04/16/2025 10:00 AM Authorized by: Ana Selby FNP Performed by: Ana Selby FNP Consent given by: patient Site marked: site marked Timeout: Immediately prior to procedure a time out was called to verify the correct patient, procedure, equipment, technical support technician and site/side marked as required Supporting Documentation Indications: pain Anesthesia Local anesthesia used?: local anesthesia used Local Anesthetic: lidocaine 2% without epinephrine and co-phenylcaine spray Anesthetic total: 1 mL Sedation Patient sedated?: patient not sedated Procedure Details Location: shoulder - R subacromial bursa Preparation: Patient was prepped and draped in the usual sterile fashion Needle gauge: 27g. Approach: posterior Methylprednisolone amount: 40 mg Lidocaine 2% amount: 1 mL Patient tolerance: patient tolerated the procedure well with no immediate complications Ana Selby CLOTH FINISHING RANGE OPERATOR PROCEDURE/MINOR SURGICAL ORDERABLES Final Result Performing Organization Address [facility] de Phone Number [facility] CLIA# [id number] [address] [place] [address] * LA ARTHROCENTESIS ASPIR&/INJ MAJOR JT/BURSA W/O US (04/16/2025 10:00 AM CDT) Narrative [facility] - 04/16/2025 10:00 AM CDT Ana Selby FNP 04/16/2025 10:32 AM Large Joint Inject/Drain Date/Time: 04/16/2025 10:00 AM Authorized by: Ana Selby FNP Performed by: Ana Selby FNP Consent given by: patient Site marked: site marked Timeout: Immediately prior to procedure a time out was called to verify the correct patient, procedure, equipment, technical support technician and site/side marked as required Supporting Documentation Indications: pain Anesthesia Local anesthesia used?: local anesthesia used Anesthesia: local infiltration Local Anesthetic: lidocaine 2% without epinephrine and co-phenylcaine spray Anesthetic total: 1 mL Sedation Patient sedated?: patient not sedated Procedure Details Location: shoulder - L subacromial bursa Preparation: Patient was prepped and draped in the usual sterile fashion Needle gauge: 27g. Approach: posterior Methylprednisolone amount: 40 mg Lidocaine 2% amount: 1 mL Patient tolerance: patient tolerated the procedure well with no immediate complications Ana Selby CLOTH FINISHING RANGE OPERATOR PROCEDURE/MINOR SURGICAL ORDERABLES Final Result Performing Organization Address [facility] Co de Phone Number [facility] CLIA# [id number] [address] [place] [address] * LA INTERROGATION EVAL REMOTE </90 D 1/2/WOOL HANDLER LD DFB, LA REM INTERROG PM/LDLS PM/IDS <90 D TECHREVIEW (03/11/2025 2:00 AM CDT) 03/11/2025 2:00 AM CDT Narrative INTERFACE SYSTEM - 03/11/2025 9:16 AM CDT Remote Transmission Report Date of Procedure: March 11, 2025 Events: Since 02/08/2025 No tachyarrhythmias detected, no therapy delivered Comments: Nikolay remote transmission reveals normal single chamber ICD function with stable available threshold and impedance trends. Presenting EGM indicates ventricular sensing 60s bpm. Follow-up by remote transmission in 3 months. See attached report for details. Procedure Note Provider, Historical - 03/11/2025 Remote Transmission Report Date of Procedure: March 11, 2025 Events: Since 02/08/2025 No tachyarrhythmias detected, no therapy delivered Comments: Nikolay remote transmission reveals normal single chamber ICD function withstable available threshold and impedance trends. Presenting EGM indicates ventricular sensing 60s bpm. Follow-up by remote transmission in 3 months. See attached report for details. Shadi Rodriguez MD CARDIAC SERVICES ORDERA BLES Edited Result - Final INTERFACE SYSTEM Refer to clinic/hospital department * US ABDOMEN COMPLETE (04/14/2021 9:51 AM CDT) Anatomical Region Laterality Modality Abdomen Ultrasound 04/14/2021 9:51 AM CDT Impressions 04/14/2021 5:09 PM CDT IMPRESSION: Please see below. US ABDOMEN COMPLETE, 04/14/2021 9:51 AM. REASON FOR EXAM: See Diagnosis. DIAGNOSIS: Gastroesophageal reflux disease without esophagitis; Other specified intestinal malabsorption; S/P laparoscopic sleeve gastrectomy; Epigastric abdominal pain. COMPARISON: None. TECHNIQUE: Multiplanar real-time ultrasonography of the abdomen using longoria-scale imaging, supplemented by color and spectral Doppler as needed. FINDINGS: * Liver: Hepatic parenchymal echogenicity is mildly heterogeneous and echogenicity is slightly increased. No discrete hepatic lesion is identified. * Gallbladder: There are some layering gallstones in the dependent gallbladder measuring 7 mm in diameter. There is no gallbladder wall thickening or sonographic Liriano's sign. There is no pericholecystic fluid. * Biliary: No intra- or extra-hepatic ductal dilatation. Common bile duct measures 4.6 mm. * Spleen: There are couple calcified granulomas. Maximal dimension = 13.0 cm. * Pancreas: Incompletely visualized; unremarkable * Kidneys: A simple cyst in the left kidney measures up to 2.2 cm. Right kidney is unremarkable. Right kidney measures 12.0 cm. Left kidney measures 11.4 cm. * Peritoneum: No ascites. * Imaged Aorta/IVC: Obscured by bowel gas. ++++++++++++++++++++ IMPRESSION: 1. Nonspecific heterogeneity of the liver with increased hepatic echogenicity. These findings may indicate underlying hepatic steatosis or chronic liver disease. 2. Cholelithiasis without evidence of acute cholecystitis. 3. Simple left renal cyst measuring up to 2.2 cm. Narrative Procedure Note Erlin Coombs MD - 04/14/2021 IMPRESSION: Please see below. US ABDOMEN COMPLETE, 04/14/2021 9:51 AM. REASON FOR EXAM: See Diagnosis. DIAGNOSIS: Gastroesophageal reflux disease without esophagitis; Other specified intestinal malabsorption; S/P laparoscopic sleeve gastrectomy; Epigastric abdominal pain. COMPARISON: None. TECHNIQUE: Multiplanar real-time ultrasonography of the abdomen using longoria-scale imaging, supplemented by color and spectral Doppler as needed. FINDINGS: * Liver: Hepatic parenchymal echogenicity is mildly heterogeneous and echogenicity is slightly increased. No discrete hepatic lesion is identified. * Gallbladder: There are some layering gallstones in the dependent gallbladder measuring 7 mm in diameter. There is no gallbladder wall thickening or sonographic Liriano's sign. There is no pericholecystic fluid. * Biliary: No intra- or extra-hepatic ductal dilatation. Common bile duct measures 4.6 mm. * Spleen: There are couple calcified granulomas. Maximal dimension = 13.0 cm. * Pancreas: Incompletely visualized; unremarkable * Kidneys: A simple cyst in the left kidney measures up to 2.2 cm. Right kidney is unremarkable. Right kidney measures 12.0 cm. Left kidney measures 11.4 cm. * Peritoneum: No ascites. * Imaged Aorta/IVC: Obscured by bowel gas. ++++++++++++++++++++ IMPRESSION: 1. Nonspecific heterogeneity of the liver with increased hepatic echogenicity. These findings may indicate underlying hepatic steatosis or chronic liver disease. 2. Cholelithiasis without evidence of acute cholecystitis. 3. Simple left renal cyst measuring up to 2.2 cm. Rowena Harman [facility] US ORDERABLES Final Result * ENDOSCOPY, COLON, DIAGNOSTIC (10/15/2017 12:00 AM CDT) [facility] Scanning GI PROCEDURE ORDERABLES Final Re sult from Last 3 Months or Most Recently Relevant to Health Maintenance Additional Health Concerns Active Problems Noted Date Diagnosed Date Heart Failure Problem 05/15/2024 Heart Failure Problem 07/09/2024 Heart Failure Problem 07/09/2024 Heart Failure Problem 07/09/2024 Heart Failure Problem 07/09/2024 Heart Failure Problem 07/09/2024 Heart Failure Problem 07/09/2024 Heart Failure Problem 07/09/2024 Heart Failure Problem 07/09/2024 Heart Failure Problem 07/09/2024 Heart Failure Problem 07/09/2024 Heart Failure Problem 07/11/2024 Heart Failure Problem 07/11/2024 Insurance MEDICARE PART A AND B Droid system master LIFE [employer] SUPP [place] [id number] RX [facility] Medicare Part D Advance Directives For more information, please contact: [phone] * Full Code (Latest Code Status on File) Date Activated Date Inactivated Comments 10/22/2022 4:38 PM 10/22/2022 7:59 PM * Full Code Date Activated Date Inactivated Comments 10/22/2022 12:40 PM 10/22/2022 4:38 PM * Full Code Date Activated Date Inactivated Comments 05/17/2022 11:27 AM 05/17/2022 2:33 PM * Full Code Date Activated Date Inactivated Comments 04/01/2022 3:48 PM 04/01/2022 8:51 PM * Full Code Date Activated Date Inactivated Comments 04/01/2022 8:54 AM 04/01/2022 3:48 PM Care Teams Residential Counselor Relationship Specialty Start Date End Date Curtis Mariee MD [address] [facility] [address] [place] [address] PCP - General Family Practice 07/08/23
--- OUTSIDE RECORDS SUMMARY | 2025-05-27 21:38 | XMS_ITS | Encounter Summary ---
Author Organization [facility] Address [address] [place] [address] Care Team Providers Care Rod Pointer Name Role Phone Rosita Rodríguez DO Primary Care Provider Encounter Details Date Type Department Care Team (Latest Contact Info) Description 01/16/2015 Ancillary Orders [facility] [place] [address] [place] [address] Shadi Rodirguez MD [address] [facility] [address] [place] [address] Nonischemic cardiomyopathy (CMS/HCC) (Primary Dx) Social History Tobacco Use Types Packs/Day Years Used Date Smoking Tobacco: Former Cigarettes 0 Q uit: 05/18/2007 Alcohol Use Standard Drinks/Week Comments Not Asked 0 (1 standard drink = 0.6 oz pur e alcohol) Sex and Gender Information Value Date Recorded Sex Assigned at Not on file Legal Sex Male 3:06 PM CDT Gender Identity Not on file Sexual Orientation Not on file documented as of this encounter Plan of Treatment Not on file documented as of this encounter Visit Diagnoses Diagnosis Nonischemic cardiomyopathy (CMS/HCC)- Primary Other primary cardiomyopathies documented in this encounter Care Teams Rod Pointer Relationship Specialty Start Date End Date Rosita Rodríguez DO [address] [place] [address] PCP - General Family Practice 07/26/17 documented as of this encounter
--- OUTSIDE RECORDS SUMMARY | 2025-05-27 21:38 | XMS_ITS | Encounter Summary ---
Author Organization [facility] Address [address] [place] [address] Care Team Providers Care Brick Kiln Burner Name Role Phone Curtis Mariee MD Primary Care Provider [phone] Encounter Details Date Type Department Care Team (Late st Contact Info) Description 05/27/2025 Orders Only [facility] [address] [facility] [address] [place] [address] Nini Hernandez RN Social History Tobacco Use Types Packs/Day Years Used Date Smoking Tobacco: Every Day Cigarettes Smokeless Tobacco: Never Alcohol Use Standard Drinks/Week Comments No 0 (1 standard drink = 0.6 oz pur e alcohol) Sex and Gender Information Value Date Recorded Sex Assigned at Not on file Legal Sex Male 1:20 PM FILL TECHNICIAN Gender Identity Not on file Sexual Orientation Not on file documented as of this encounter Progress Notes * Nini Hernandez RN - 05/27/2025 11:55 AM CST Received refill request. Patient is compliant with routine cardiology office visits. Confirmed dosein Epic. Sent losartan refill to pharmacy. Requested Prescriptions Signed Prescriptions Disp Refills losartan (COZAAR) 25 mg tablet 30 Tablet 5 Sig: Take 1 Tablet (25 mg) by mouth daily. TOM [address] Dr[address] MD, [facility] TECHNICIAN documented in this encounter Plan of Treatment Upcoming Encounters Date Type Department Care Team (Late st Contact Info) Description 06/10/2025 8:00 AM FILL TECHNICIAN Procedure visit [facility] [address] [place] [phone] Shadi Rodriguez MD [address] [place] [address] 07/22/2025 10:20 AM FILL TECHNICIAN Office Visit [facility] [address] [phone] Ana Selby, [facility] [address] [address] 08/27/2025 1:20 PM CDT Office Visit [facility] [address] [place] [address] Anaya Perrin, [facility] [address] [place] [address] 12/16/2025 3:00 PM CDT Office Visit [facility] Gen Spec Surg [place] [address] [address] Abner Bruce, [facility] [address] [address] 12/16/2025 3:45 PM CDT Video Visit [facility] [address] [address] Jesu Chung, WAGON DRIVER SALESPERSON [address] [address] documented as of this encounter Goals Goal Patient Goal Type Associated Problems Recent Progress Patient-Stated? Author Heart Failure Goal Care Plan Heart Failure Problem No Gloria Timmons RN Heart Failure Goal Care Plan Heart Failure Problem No Wayne, Manish Heart Failure Goal Care Plan Heart Failure Problem No Wayen, Manish Heart Failure Goal Care Plan Heart [...] documented as of this encounter Care Teams Brick Kiln Burner Relationship Specialty Start Date End Date Curtis Mariee MD [address] [phone] PCP - General Family Practice 07/08/23 documented as of this encounter
--- OUTSIDE RECORDS SUMMARY | 2025-05-27 21:38 | XMS_ITS | Encounter Summary ---
Author Organization [facility] Address [address] [place] [address] Care Team Providers Care Dual Hose Cementer Name Role Phone Curtis Mariee MD Primary Care Provider [phone] Encounter Details Date Type Department Care Team (Latest Contact Info) Description 07/10/2024 Results Follow-Up [facility] Family Medicine [place] [address] [phone] Ana Selby, [facility] [address] [address] LIPID PANEL, CBC WITH DIFFERENTIAL, COMPREHENSIVE METABOLIC PANEL, Additional followed-up results: 7 Social History Tobacco Use Types Packs/Day Years Used Date Smoking Tobacco: Every Day Cigarettes Smokeless Tobacco: Never Alcohol Use Standard Drinks/Week Comments No 0 (1 standard drink = 0.6 oz pur e alcohol) Sex and Gender Information Value Date Recorded Sex Assigned at Not on file Legal Sex Male 1:20 PM DATA SECURITY COORDINATOR Gender Identity Not on file Sexual Orientation Not on file documented as of this encounter Plan of Treatment Upcoming Encounters Date Type Department Care Team (Late st Contact Info) Description 06/10/2025 8:00 AM DATA SECURITY COORDINATOR Procedure visit [facility] [address] [facility] [address] [place] [address] Shadi Rodriguez MD [address] [place] [phone] 07/22/2025 10:20 AM DATA SECURITY COORDINATOR Office Visit [facility] Family Medicine [place] [address] [place] [address] Ana Selby, [facility] [address] [address] 08/27/2025 1:20 PM CDT Office Visit [facility] [address] [place] [phone] Anaya Perrin, [facility] [address] [place] [phone] 12/16/2025 3:00 PM CDT Office Visit [facility] Gen Spec Surg [place] [address] [place] [address] Abner Bruce, [facility] [address] [place] [phone] 12/16/2025 3:45 PM CDT Video Visit [facility] [address] [address] Jesu Chung NP [address] [address] documented as of this encounter Goals Goal Patient Goal Type Associated Problems Recent Progress Patient-Stated? Author Heart Failure Goal Care Plan Heart Failure Problem No Gloria Timmons, turkey roll maker Failure Goal Care Plan Heart Failure Problem [...] Plan Heart Failure Problem No Wayne, Manish documented as of this encounter Visit Diagnoses [...] Failure Problem 07/09/2024 Heart Failure Problem 07/09/2024 documented as of this encounter Care Teams Dual Hose Cementer Relationship Specialty Start Date End Date Curtis Mariee MD [address] [phone] PCP - General Family Practice 07/08/23 documented as of this encounter
--- OUTSIDE RECORDS SUMMARY | 2025-05-27 21:38 | XMS_ITS | Encounter Summary ---
Author Organization [facility] Address [address] [place] [address] Care Team Providers Care Internet Marketing Consultant Name Role Phone Marcos, Rosita Guy TILLMAN Primary Care Provider Reason for Referral * Auth/Cert (Routine) Specialty Diagnoses / Procedures Referred By Contac t Referred To Contact Cardiology Diagnoses ICD (implantable cardioverter-defibrillato r) battery depletion Procedures CL BATTERY CHANGE Shadi Rodriguez MD Phone: tel: fax: [facility] Cardiac Director Call Center Sales [address] [place] [address] Phone: tel: fax: Referral ID Status Reason Start Date Expiration Date Visits Re quested Visits Authorized [id number] 04/28/2018 05/29/2019 1 1 R EQUIPMENT MECHANICS INSTRUCTOR Encounter Details Date Type Department Care Team (Late st Contact Info) Description 04/28/2018 Ancillary Orders [facility] Cardiology [facility] [address] [place] [address] Shadi Rodriguez MD [address] [facility] [address] [place] [address] ICD (implantable cardioverter-defibri llator) battery depletion Social History Tobacco Use Types Packs/Day Years Used Date Smoking Tobacco: Former Cigarettes 0 Q uit: 05/18/2007 Smokeless Tobacco: Never Alcohol Use Standard Drinks/Week [...] documented as of this encounter Results * CL BATTERY CHANGE (05/04/2018 2:50 PM POWER EQUIPMENT MECHANICS INSTRUCTOR) [facility] - 05/04/2018 2:57 PM POWER EQUIPMENT MECHANICS INSTRUCTOR Procedures: 1. [facility] Single Chamber ICD Explant (old) 2. [facility] [place] Single Chamber ICD Implant (new) 3. Device Interrogation 4. Conscious Sedation Operators: 1. Shadi Rodriguez MD, [facility] - Clinical Cardiac Electrophysiology Indication: 52 y/o WM with h/o ICD presents for generator change due to early battery failure alert for FDA recalled device. Procedure Description: After the patient was informed and consented regarding the risks, benefits, and alternatives to the procedure, the patient was brought to the EP lab in a non-sedated and fasted state. Conscious sedation was administered under my supervision with fentanyl and versed. The patient was prepped in the usual sterile fashion. Conscious sedation was administered. Topical lidocaine was administered over the area of the old incision for local anesthesia. An incision was made and dissection was performed using both blunt and electrocautery. The old generator was removed from the pocket and disconnected from the lead. The lead was inspected and freed from adhesions. The lead was then connected to the new generator. The system was then placed in the pocket. The pocket was irrigated with an antibiotic/saline solution. The pocket was closed with multiple layers of absorbable suture. The device was interrogated and the parameters are listed below. After completion of the procedure, the patient was returned to the holding area for recovery from anesthesia. EBL = < 30 cc. Conscious sedation time = 1428 and end time = 1450. Complications: NONE Device: [facility] Fortify Assura [id number] RIGHT VENTRICULAR Lead: [id number] Pacing Threshold: 1.5V @ 0.5ms Impedance: 390 Ohms R-wave: 12.0 mV Summary: 1. Successful Single Chamber ICD Generator Change Shadi Rodriguez MD, FACC, RS Clinical Cardiac Electrophysiology Police Captain [facility] Shadi Rodriguez MD FLUOROSCOPY ORDERABLES Final Result [facility] documented in this encounter Visit Diagnoses Diagnosis ICD (implantable cardioverter-defibrillator) battery depletion ICD (implantable cardioverter-defibrillator) battery depletion- Primary documented in this encounter Care Teams Internet Marketing Consultant Relationship Specialty Start Date End Date Rosita Rodríguez DO [address] [place] [address] PCP - General Family Practice 07/26/17 documented as of this encounter
== END 2025-05-27 20:56 | disposition home or self-care (01) ==
PROVIDERS: Emergency Provider Family Medicine; PCP Registered Nurse
DX: K40.90 Unilateral inguinal hernia, without obstruction or gangrene, not specified as recurrent (principal); E78.5 Hyperlipidemia, unspecified; I11.0 Hypertensive heart disease with heart failure; I50.9 Heart failure, unspecified; Z79.82 Long term (current) use of aspirin
CPT/HCPCS: 74176; 96374; 96375; 99285; J2270; J2405

== ENCOUNTER → 2025-05-30 08:40 | Outpatient (BNVA) | payer MEDICARE, OTHER, SELFPAY | PROVIDERS: PCP Registered Nurse; Visit Provider Student in an Organized Health Care Education/Training Program | DX: K46.9 Unspecified abdominal hernia without obstruction or gangrene (principal) | CPT/HCPCS: 99203 ==